=== PATIENT | female | born 1940 | race Caucasian/White ===

== ENCOUNTER → 2017-07-09 | Outpatient (CLI) | payer OTHER | END | disposition home or self-care (01) | LOC: KCIC 09:23 | DX: M79.641 Pain in right hand (principal); Z91.81 History of falling | CPT/HCPCS: 73060 ==

== ENCOUNTER → 2017-07-16 | Outpatient (CLI) | payer OTHER | END | disposition home or self-care (01) | LOC: KCIC 11:41 | DX: I51.7 Cardiomegaly (principal) | CPT/HCPCS: 71046 ==

== ENCOUNTER → 2018-01-24 | Outpatient (CLI) | payer OTHER ==
[~2018-01-24] MED LIST: LEVO75TA PO
[2018-01-24 01:41] LABS: BASO # 0.1 x10^3/uL (0.0-0.2); BASO % 1 % (0-3); EOS # 0.2 x10^3/uL (0.0-0.7); EOS % 4 % (0-3); HEMATOCRIT 41.4 % (36.0-47.0); LYMPH # 1.5 x10^3/uL (1.0-4.8); LYMPH % 33 % (24-48); MEAN CORPUSCULAR HEMOGLOBIN 32 pg (25-35); MEAN CORPUSCULAR HGB CONC 34 g/dL (31-37); MEAN CORPUSCULAR VOLUME 93 fL (79-100); MONO # 0.5 x10^3/uL (0.0-1.1); MONO % 10 % (0-9); NEUT # 2.4 x10^3uL (1.8-7.7); NEUT % 52 % (31-73); PLATELET COUNT 192 x10^3/uL (140-400); RED BLOOD COUNT 4.43 x10^6/uL (3.50-5.40); RED CELL DISTRIBUTION WIDTH 13.9 % (11.5-14.5); WHITE BLOOD COUNT 4.6 x10^3/uL (4.0-11.0)
[2018-01-24 01:57] LABS: CALCIUM 9.2 mg/dL (8.5-10.1); CREATININE 0.8 mg/dL (0.6-1.0); GFR 69.2; POTASSIUM 4.1 mmol/L (3.5-5.1)
== END | disposition home or self-care (01) ==
LOC: SPEC 01:23
PROVIDERS: ATTEND Internal Medicine Cardiovascular Disease
DX: I48.91 Unspecified atrial fibrillation (principal); E03.9 Hypothyroidism, unspecified; E78.5 Hyperlipidemia, unspecified
CPT/HCPCS: 36415; 80048; 80061; 84443; 85025

== ENCOUNTER 2018-08-25 07:59 | Inpatient (IN) | payer OTHER ==
[~2018-08-25] VITALS: Ht 162.6 cm; Wt 81.6 kg
[2018-08-25] MEDS ORDERED: ACETAMINOPHEN 500 MG TABLET PO ONE (08:30)
--- NOTE | 2018-08-25 08:36 | PHYS DOC ---
Past Medical History Past Medical History: A-Fib, CVA, Hypothyroid Additional Past Medical Histor: Guillain [place] Past Surgical History: Appendectomy, Oophorectomy Smoking: Cigarettes (The patient is a nonsmoker.) Alcohol Use: None Drug Use: None Adult General Chief Complaint Chief Complaint: MECHANICAL FALL HPI HPI Patient is an 78-year-old female who presents to the emergency department for evaluation. She was initially referred to the emergency department for evaluation after a mechanical fall. The patient, who was fully coherent, states that she was trying to get her pants on today, when she lost her balance and fell to the ground. She states she states more slid down to the floor then fell , and denies any injury or pain. She denies any complaints at this time at all. She is not short of breath. However, she is noted to be febrile. Additionally, her daughter states that the patient was short of breath yesterday has had a cough. She denies any chest pain, dizziness, lightheadedness, numbness or weakness, headache, neck pain, back pain, or extremity pain. There are no alleviating or exacerbating factors to the patient's symptoms. Review of Systems Review of Systems Constitutional: Denies fever or chills [] Eyes: Denies change in visual acuity, redness, or eye pain [] HENT: Denies nasal congestion or sore throat [] Respiratory: No additional information not addressed in HPI [] Cardiovascular: The patient denies any chest pain, palpitations, or orthopnea[] GI: Denies abdominal pain, nausea, vomiting, bloody stools or diarrhea [] : Denies dysuria or hematuria [] Musculoskeletal: Denies back pain or joint pain [] Integument: Denies rash or skin lesions [] Neurologic: Denies headache, focal weakness or sensory changes [] Endocrine: Denies polyuria or polydipsia [] All other systems were reviewed and found to be within normal limits, except as documented in this note. Current Medications Current Medications Current Medications Medications (Trade) Dose Ordered Sig/Jazmine Start Time Stop Time Status Last Admin Dose Admin Acetaminophen (Tylenol) 1,000 mg 1X ONCE 08/25/18 08:30 08/25/18 08:31 DC 08/25/18 08:53 1,000 MG Azithromycin 250 ml @ 250 mls/hr 1X ONCE 08/25/18 09:45 08/25/18 10:44 DC 08/25/18 10:12 250 MLS/HR Ceftriaxone Sodium (Rocephin) 1 gm 1X ONCE 08/25/18 09:45 08/25/18 09:46 DC 08/25/18 10:03 1 GM Oseltamivir Phosphate (Tamiflu) 75 mg STK-MED ONCE 08/25/18 10:17 08/25/18 10:21 DC Sodium Chloride 1,000 ml @ 1,000 mls/hr 1X ONCE 08/25/18 11:45 08/25/18 12:44 08/25/18 11:52 1,000 MLS/HR Allergies Allergies Allergies Coded Allergies Type Severity Reaction Last Updated Verified Influenza Virus Vaccines Allergy 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 Conjunctivae normal color, sclerae non-icteric; moist mucous membranes. NECK: Supple, non-tender; no meningismus.There is full, painless range of motion of the cervical spine, without any focal bony midline tenderness to palpation. LUNGS: There are mild scattered wheezes, primarily in the right mid and upper lung [place], otherwise lungs are clear, breathing even and unlabored. Normal air movement. HEART: Irregularly irregular rhythm, no murmur CHEST: No deformity; non-tender ABDOMEN: The abdomen is soft, and non-tender, no masses or bruits. EXTREM: Normal ROM; no deformity, no calf tenderness. Normal pulses palpable in all extremities. There is no pedal edema. SKIN: No rash; no diaphoresis NEURO: Alert; normal speech and cognition; CN's grossly intact; strength grossly intact without focal deficit. BACK: No CVA TTP.There is no bony tenderness to palpation of the thoracic or lumbar spine. Current Patient Data Vital Signs Vital Signs Date Time Temp Pulse Resp B/P (MAP) Pulse Ox O2 Delivery O2 Flow Rate FiO2 08/25/18 07:59 100.4 100 20 109/71 (84) 95 Room Air 100.4 Lab Values Laboratory Tests Test 08/25/18 08:55 08/25/18 09:00 08/25/18 09:35 White Blood Count 3.5 x10^3/uL (4.0-11.0) L Red Blood Count 4.53 x10^6/uL (3.50-5.40) Hemoglobin 13.5 g/dL (12.0-15.5) Hematocrit 41.4 % (36.0-47.0) Mean Corpuscular Volume 91 fL (79-100) Mean Corpuscular Hemoglobin 30 pg (25-35) Mean Corpuscular Hemoglobin Concent 33 g/dL (31-37) Red Cell Distribution Width 13.4 % (11.5-14.5) Platelet Count 159 x10^3/uL (140-400) Neutrophils (%) (Auto) 70 % (31-73) Lymphocytes (%) (Auto) 16 % (24-48) L Monocytes (%) (Auto) 13 % (0-9) H Eosinophils (%) (Auto) 0 % (0-3) Basophils (%) (Auto) 1 % (0-3) Neutrophils # (Auto) 2.5 x10^3uL (1.8-7.7) Lymphocytes # (Auto) 0.6 x10^3/uL (1.0-4.8) L Monocytes # (Auto) 0.5 x10^3/uL (0.0-1.1) Eosinophils # (Auto) 0.0 x10^3/uL (0.0-0.7) Basophils # (Auto) 0.0 x10^3/uL (0.0-0.2) Sodium Level 138 mmol/L (136-145) Potassium Level 4.2 mmol/L (3.5-5.1) Chloride Level 101 mmol/L (98-107) Carbon Dioxide Level 29 mmol/L (21-32) Anion Gap 8 (6-14) Blood Urea Nitrogen 15 mg/dL (7-20) Creatinine 0.9 mg/dL (0.6-1.0) Estimated GFR (Cockcroft-Gault) 60.2 BUN/Creatinine Ratio 17 (6-20) Glucose Level 103 mg/dL (70-99) H Lactic Acid Level 1.0 mmol/L (0.4-2.0) Calcium Level 8.6 mg/dL (8.5-10.1) Total Bilirubin 0.4 mg/dL (0.2-1.0) Aspartate Amino Transferase (AST) 53 U/L (15-37) H Alanine Aminotransferase (ALT) 38 U/L (14-59) Alkaline Phosphatase 139 U/L (46-116) H Troponin I Quantitative < 0.017 ng/mL (0.000-0.055) BO-Rwb-H-Type Natriuretic Peptide 1051 pg/mL (0-449) H Total Protein 7.1 g/dL (6.4-8.2) Albumin 3.3 g/dL (3.4-5.0) L Albumin/Globulin Ratio 0.9 (1.0-1.7) L Influenza Type A Antigen Positive (NEGATIVE) Influenza Type B Antigen Negative (NEGATIVE) Prothrombin Time 13.9 SEC (11.7-14.0) Prothrombin Time INR 1.1 (0.8-1.1) PTT 33 SEC (24-38) Laboratory Tests 08/25/18 08:55 Laboratory Tests 08/25/18 08:55 EKG EKG [Atrial fibrillation at a rate of 101 bpm, normal axis, normal intervals, there are no acute ischemic ST/T changes.] Radiology/Procedures Radiology/Procedures [PROCEDURE: CHEST PA & LATERAL CHEST PA LATERAL History: COUGH Comparison: Two-view chest, 07/16/2017. Findings: Stable mild cardiomegaly. Atherosclerotic and mildly tortuous thoracic aorta. Pulmonary vasculature is normal. Right lower lobe airspace disease. No pleural effusion or pneumothorax is seen. Degenerative endplate spurring of the thoracic spine. IMPRESSION: Right lower lobe infiltrate.] Course & Med Decision Making Course & Med Decision Making Pertinent Labs and Imaging studies reviewed. (See chart for details) []10:20 AM: The patient's condition remains stable. I discussed test results with the patient and her family, the need for close follow-up, and return precautions. I did discuss the patient's Tamiflu doesn't with the pharmacist who recommended 30 twice a day based on her creatinine clearance. 11:50 AM: Patient's blood pressure, upon preparing her for discharge, was noted to be low, several blood pressure measurements were taken, including manual pressures, and her blood pressure was found to be in the 70s to 80s systolic. The patient does not want stay in the hospital, but her family is trying to convince her to do so. 12:25 PM: BP 116/62. Pt agreeable to stay over night. I spoke with the hospitalist, who accepted the patient to the hospital for further evaluation and treatment. Dragon Disclaimer Dragon Disclaimer This electronic medical record was generated, in whole or in part, using a voice recognition dictation system. Departure Departure Impression: Primary Impression: Influenza A Additional Impression: Pneumonia Disposition: ADMITTED INPATIENT Admitting Physician: Hubert Chandra Condition: GOOD Referrals: SOREN SALCEDO MD (PCP) Patient Instructions: Influenza, Adult, Pneumonia, Adult Scripts Oseltamivir Phosphate (TAMIFLU) 30 Mg Capsule 1 CAP PO BID, #10 CAP Prov: QUIN COPELAND MD 08/25/18 Azithromycin (AZITHROMYCIN TABLET) 250 Mg Tablet 1 PKG PO UD, #6 TAB Prov: QUIN COPELAND MD 08/25/18 Problem Qualifiers QUIN COPELAND MD Aug 25, 2018 08:36
--- NOTE | 2018-08-25 08:44 | RAD ---
CHEST PA LATERAL History: COUGH Comparison: Two-view chest, 07/16/2017. Findings: Stable mild cardiomegaly. Atherosclerotic and mildly tortuous thoracic aorta. Pulmonary vasculature is normal. Right lower lobe airspace disease. No pleural effusion or pneumothorax is seen. Degenerative endplate spurring of the thoracic spine. IMPRESSION: Right lower lobe infiltrate. Electronically signed by: Tee Stephenson MD (08/25/2018 8:41 AM) [id number]
--- NOTE | 2018-08-25 08:57 | EKG ---
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
[2018-08-25 09:10] LABS: BASO % 1 % (0-3); EOS % 0 % (0-3); HEMATOCRIT 41.4 % (36.0-47.0); HEMOGLOBIN 13.5 g/dL (12.0-15.5); LYMPH # 0.6 x10^3/uL (1.0-4.8); LYMPH % 16 % (24-48); MEAN CORPUSCULAR HEMOGLOBIN 30 pg (25-35); MEAN CORPUSCULAR HGB CONC 33 g/dL (31-37); MEAN CORPUSCULAR VOLUME 91 fL (79-100); MONO # 0.5 x10^3/uL (0.0-1.1); MONO % 13 % (0-9); NEUT # 2.5 x10^3uL (1.8-7.7); NEUT % 70 % (31-73); PLATELET COUNT 159 x10^3/uL (140-400); RED BLOOD COUNT 4.53 x10^6/uL (3.50-5.40); RED CELL DISTRIBUTION WIDTH 13.4 % (11.5-14.5); WHITE BLOOD COUNT 3.5 x10^3/uL (4.0-11.0)
[2018-08-25 09:24] LABS: CALCIUM 8.6 mg/dL (8.5-10.1); CREATININE 0.9 mg/dL (0.6-1.0); GFR 60.2; POTASSIUM 4.2 mmol/L (3.5-5.1)
[2018-08-25 09:30] LABS: ALBUMIN 3.3 g/dL (3.4-5.0); ALBUMIN/GLOBULIN RATIO 0.9 (1.0-1.7); TOTAL BILIRUBIN 0.4 mg/dL (0.2-1.0); TOTAL PROTEIN 7.1 g/dL (6.4-8.2)
[2018-08-25] MEDS ORDERED: AZITHRMYCN 500MG IVPB FOR OMNI 250 ML IV ONE (09:45)
[2018-08-25] MEDS ORDERED: cefTRIAXone IV Push 1 GM VIAL. IVP ONE (09:45)
[2018-08-25 09:52] LABS: PROTHROMBIN TIME PATIENT 13.9 SEC (11.7-14.0)
[2018-08-25 10:04] LABS: INFLUENZA A PATIENT POSITIVE (NEGATIVE); INFLUENZA B PATIENT NEGATIVE (NEGATIVE)
[2018-08-25] MEDS ORDERED: OSELTAMIVIR 30 MG CAPSULE PO ONE (10:15)
[2018-08-25] MEDS ORDERED: OSELTAMIVIR 75 MG CAPSULE PO ONE (10:17)
[2018-08-25] MEDS ORDERED: OSEL30CA PO (10:23)
[2018-08-25] MEDS ORDERED: AZIT250T6 PO (10:23)
[2018-08-25] MEDS ORDERED: IV NORMAL SALINE 1000ML BAG 1,000 ML IV ONE (11:45)
--- NOTE | 2018-08-25 13:07 | PDOC1 ---
History and Physical Date of Admission Date of Admission DATE: 08/25/18 TIME: 13:07 Identification/Chief Complaint Chief Complaint SEEN IN ER , initially referred to the emergency department for evaluation after a mechanical fall. The patient, who was fully coherent, states that she was trying to get her pants on today, when she lost her balance and fell to the ground. She states she states more slid down to the floor then fell, and denies any injury or pain. She denies any complaints at this time at all. She is not short of breath. 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 DUE TO HX GUILLIAN-BARRE Past Medical History Past Medical History Past Medical History Past Medical History Past Medical History: A-Fib, CVA, Hypothyroid Additional Past Medical Histor: Guillain [place] Past Surgical History: Appendectomy, Oophorectomy Smoking: Cigarettes (The patient is a nonsmoker.) Alcohol Use: None Drug Use: None family hx obesity Cardiovascular: AFIB Pulmonary: No pertinent hx CENTRAL NERVOUS SYSTEM: CVA Musculoskeletal: Osteoarthritis Family History Family History: High Cholestrol, Hypertension Social History Smoke: No ALCOHOL: none Drugs: None Current Problem List Problem List Problems Medical Problems: (1) Influenza A Status: Acute (2) Pneumonia Status: Acute Current Medications Current Medications Current Medications Acetaminophen (Tylenol) 1,000 mg 1X ONCE PO Last administered on 08/25/18at 08: 53; Start 08/25/18 at 08:30; Stop 08/25/18 at 08:31; Status DC Ceftriaxone Sodium (Rocephin) 1 gm 1X ONCE IVP Last administered on 08/25/18at 10:03; Start 08/25/18 at 09:45; Stop 08/25/18 at 09:46; Status DC Azithromycin 250 ml @ 250 mls/hr 1X ONCE IV Last administered on 08/25/18at 10 :12; Start 08/25/18 at 09:45; Stop 08/25/18 at 10:44; Status DC Oseltamivir Phosphate (Tamiflu) 30 mg 1X ONCE PO Last administered on at 10:25; Start 08/25/18 at 10:15; Stop 08/25/18 at 10:21; Status DC Oseltamivir Phosphate (Tamiflu) 75 mg STK-MED ONCE PO ; Start 08/25/18 at 10:17 ; Stop 08/25/18 at 10:21; Status DC Sodium Chloride 1,000 ml @ 1,000 mls/hr 1X ONCE IV Last administered on at 11:52; Start 08/25/18 at 11:45; Stop 08/25/18 at 12:44; Status DC Active Scripts Active Tamiflu (Oseltamivir Phosphate) 30 Mg Capsule 1 Cap PO BID Azithromycin Tablet (Azithromycin) 250 Mg Tablet 1 Pkg PO UD Reported Unithroid (Levothyroxine Sodium) 75 Mcg Tablet 75 Mcg PO DAILY Allergies Allergies: Coded Allergies: Influenza Virus Vaccines (Verified Allergy, Severe, GUILIAN BARRE SYNDROME , 08/25/18) ROS Review of System Review of Systems Review of Systems Constitutional: Denies fever or chills, GENERALLY WEAK [] Eyes: Denies change in visual acuity, redness, or eye pain [] [place] HENT: Denies nasal congestion or sore throat [] Respiratory: No additional information not addressed in HPI [] Cardiovascular: The patient denies any chest pain, palpitations, or orthopnea[] GI: Denies abdominal pain, nausea, vomiting, bloody stools or diarrhea [] : Denies dysuria or hematuria [] Musculoskeletal: Denies back pain or joint pain [] Integument: Denies rash or skin lesions [] Neurologic: Denies headache,IS GENERALLY WEAK NO focal weakness or sensory changes [] Endocrine: Denies polyuria or polydipsia [] 14 PT systems were reviewed and found to be within normal limits, except as documented . General: YES: Fatigue Eyes: Yes Decreased vision Hematological and Lymphatic: No: Bleeding Problems, Blood Clots, Blood Transfusions, Brusing, Night Sweats, Pallor, Swollen Lymph Nodes, Other ENDOCRINE: No: Breast Changes, Galactorrhea, Hair Pattern Changes, Hot Flashes , Malaise/lethargy, Mood Swings, Palpitations, Polydipsia/polyuria, Skin Changes , Temperature Intolerance, Unexpected Weight Changes, Other Respiratory: YES: Cough Gastrointestinal: No Nausea, No Vomiting, No Abdominal Pain, No Diarrhea, No Constipation, No Melena, No Hematochezia, No Other Physical Exam Physical Exam Physical Exam Physical Exam PHYSICAL EXAM: CONSTITUTIONAL: Well developed, well nourished HEAD: normocephalic, atraumatic [place] EENT: PERRL, EOMI. Conjunctivae normal color, sclerae non-icteric; moist mucous membranes. NECK: Supple, non-tender; no meningismus.There is full, painless range of motion of the cervical spine, without any focal bony midline tenderness to palpation. LUNGS: There are mild scattered wheezes, primarily in the right mid and upper lung [place], otherwise lungs are clear, breathing even and unlabored. Normal air movement. HEART: Irregularly irregular rhythm, no murmur CHEST: No deformity; non-tender ABDOMEN: The abdomen is soft, and non-tender, no masses or bruits. EXTREM: Normal ROM; no deformity, no calf tenderness. Normal pulses palpable in all extremities. There is no pedal edema. SKIN: No rash; no diaphoresis NEURO: Alert; normal speech and cognition; CN's grossly intact; strength grossly intact without focal deficit. BACK: No CVA TTP.// no bony tenderness to palpation of the thoracic or lumbar spine. General: Alert, Oriented X3, Cooperative, mild distress HEENT: EOMI, Mucous membr. moist/pink Abdomen: Soft PELVIC: Examination not indicated Extremities: No cyanosis Skin: No significant lesion Neuro: Normal speech, Cranial nerves 3-12 NL Psych/Mental Status: Mental status NL Vitals Vitals Vital Signs Date Time Temp Pulse Resp B/P (MAP) Pulse Ox O2 Delivery O2 Flow Rate FiO2 08/25/18 09:38 98 33 95 08/25/18 07:59 100.4 109/71 (84) Room Air 100.4 Labs Labs Laboratory Tests Test 08/25/18 08:55 08/25/18 09:00 08/25/18 09:35 White Blood Count 3.5 x10^3/uL (4.0-11.0) Red Blood Count 4.53 x10^6/uL (3.50-5.40) Hemoglobin 13.5 g/dL (12.0-15.5) Hematocrit 41.4 % (36.0-47.0) Mean Corpuscular Volume 91 fL (79-100) Mean Corpuscular Hemoglobin 30 pg (25-35) Mean Corpuscular Hemoglobin Concent 33 g/dL (31-37) Red Cell Distribution Width 13.4 % (11.5-14.5) Platelet Count 159 x10^3/uL (140-400) Neutrophils (%) (Auto) 70 % (31-73) Lymphocytes (%) (Auto) 16 % (24-48) Monocytes (%) (Auto) 13 % (0-9) Eosinophils (%) (Auto) 0 % (0-3) Basophils (%) (Auto) 1 % (0-3) Neutrophils # (Auto) 2.5 x10^3uL (1.8-7.7) Lymphocytes # (Auto) 0.6 x10^3/uL (1.0-4.8) Monocytes # (Auto) 0.5 x10^3/uL (0.0-1.1) Eosinophils # (Auto) 0.0 x10^3/uL (0.0-0.7) Basophils # (Auto) 0.0 x10^3/uL (0.0-0.2) Sodium Level 138 mmol/L (136-145) Potassium Level 4.2 mmol/L (3.5-5.1) Chloride Level 101 mmol/L (98-107) Carbon Dioxide Level 29 mmol/L (21-32) Anion Gap 8 (6-14) Blood Urea Nitrogen 15 mg/dL (7-20) Creatinine 0.9 mg/dL (0.6-1.0) Estimated GFR (Cockcroft-Gault) 60.2 BUN/Creatinine Ratio 17 (6-20) Glucose Level 103 mg/dL (70-99) Lactic Acid Level 1.0 mmol/L (0.4-2.0) Calcium Level 8.6 mg/dL (8.5-10.1) Total Bilirubin 0.4 mg/dL (0.2-1.0) Aspartate Amino Transf (AST/SGOT) 53 U/L (15-37) Alanine Aminotransferase (ALT/SGPT) 38 U/L (14-59) Alkaline Phosphatase 139 U/L (46-116) Troponin I Quantitative < 0.017 ng/mL (0.000-0.055) QH-Jiv-K-Type Natriuretic Peptide 1051 pg/mL (0-449) Total Protein 7.1 g/dL (6.4-8.2) Albumin 3.3 g/dL (3.4-5.0) Albumin/Globulin Ratio 0.9 (1.0-1.7) Influenza Type A Antigen Positive (NEGATIVE) Influenza Type B Antigen Negative (NEGATIVE) Prothrombin Time 13.9 SEC (11.7-14.0) Prothromb Time International Ratio 1.1 (0.8-1.1) Activated Partial Thromboplast Time 33 SEC (24-38) Laboratory Tests Test 08/25/18 08:55 08/25/18 09:00 08/25/18 09:35 White Blood Count 3.5 x10^3/uL (4.0-11.0) Red Blood Count 4.53 x10^6/uL (3.50-5.40) Hemoglobin 13.5 g/dL (12.0-15.5) Hematocrit 41.4 % (36.0-47.0) Mean Corpuscular Volume 91 fL (79-100) Mean Corpuscular Hemoglobin 30 pg (25-35) Mean Corpuscular Hemoglobin Concent 33 g/dL (31-37) Red Cell Distribution Width 13.4 % (11.5-14.5) Platelet Count 159 x10^3/uL (140-400) Neutrophils (%) (Auto) 70 % (31-73) Lymphocytes (%) (Auto) 16 % (24-48) Monocytes (%) (Auto) 13 % (0-9) Eosinophils (%) (Auto) 0 % (0-3) Basophils (%) (Auto) 1 % (0-3) Neutrophils # (Auto) 2.5 x10^3uL (1.8-7.7) Lymphocytes # (Auto) 0.6 x10^3/uL (1.0-4.8) Monocytes # (Auto) 0.5 x10^3/uL (0.0-1.1) Eosinophils # (Auto) 0.0 x10^3/uL (0.0-0.7) Basophils # (Auto) 0.0 x10^3/uL (0.0-0.2) Sodium Level 138 mmol/L (136-145) Potassium Level 4.2 mmol/L (3.5-5.1) Chloride Level 101 mmol/L (98-107) Carbon Dioxide Level 29 mmol/L (21-32) Anion Gap 8 (6-14) Blood Urea Nitrogen 15 mg/dL (7-20) Creatinine 0.9 mg/dL (0.6-1.0) Estimated GFR (Cockcroft-Gault) 60.2 BUN/Creatinine Ratio 17 (6-20) Glucose Level 103 mg/dL (70-99) Lactic Acid Level 1.0 mmol/L (0.4-2.0) Calcium Level 8.6 mg/dL (8.5-10.1) Total Bilirubin 0.4 mg/dL (0.2-1.0) Aspartate Amino Transf (AST/SGOT) 53 U/L (15-37) Alanine Aminotransferase (ALT/SGPT) 38 U/L (14-59) Alkaline Phosphatase 139 U/L (46-116) Troponin I Quantitative < 0.017 ng/mL (0.000-0.055) IU-Mza-O-Type Natriuretic Peptide 1051 pg/mL (0-449) Total Protein 7.1 g/dL (6.4-8.2) Albumin 3.3 g/dL (3.4-5.0) Albumin/Globulin Ratio 0.9 (1.0-1.7) Influenza Type A Antigen Positive (NEGATIVE) Influenza Type B Antigen Negative (NEGATIVE) Prothrombin Time 13.9 SEC (11.7-14.0) Prothromb Time International Ratio 1.1 (0.8-1.1) Activated Partial Thromboplast Time 33 SEC (24-38) Images Images CHEST PA LATERAL History: COUGH Comparison: Two-view chest, 07/16/2017. Findings: Stable mild cardiomegaly. Atherosclerotic and mildly tortuous thoracic aorta. Pulmonary vasculature is normal. Right lower lobe airspace disease. No pleural effusion or pneumothorax is seen. Degenerative endplate spurring of the thoracic spine. IMPRESSION: Right lower lobe infiltrate. Electronically signed by: Tee Stephenson MD (08/25/2018 8:41 AM) [id number] VTE Prophylaxis Ordered VTE Prophylaxis Devices: Yes VTE Pharmacological Prophylaxi: Yes Assessment/Plan Assessment/Plan IMPRESSION: Right lower lobe infiltrate. flu pos mechanical fall high fall risk generalized weakness presbyoscus, marked hx GUILLIAN-BARRE remote plan tamiflu BID 30MG DUE TO AGE iv antibiotics, ZITHROMAX, ROCEPHIN o2 support prn tele fall precautions pulm consult ID CONSULT no flu shots PT/OT BLOOD CULT MIGNON VEGA MD Aug 25, 2018 13:07
[2018-08-25 15:00] VITALS: BP 121/68
[2018-08-25] MEDS ORDERED: METO-239 PO (16:52)
[2018-08-25] MEDS ORDERED: MULT1TAB52 PO (16:52)
[2018-08-25] MEDS ORDERED: LATA2.5D3 EACHEYE (16:52)
[2018-08-25] MEDS ORDERED: DABI150C PO (16:52)
[2018-08-25] MEDS ORDERED: OMEG-165 PO (16:52)
[2018-08-25] MEDS ORDERED: GLUC100018 PO (16:52)
[2018-08-25] MEDS: IV NORMAL SALINE 1000ML BAG 1,000 ML IV SCH (17:30)
[2018-08-25] MEDS ORDERED: guaiFENesin DM 200MG/20MG 10 ML SYRUP PO PRN (17:30)
[2018-08-25] MEDS ORDERED: ACETAMINOPHEN 500 MG TABLET PO PRN (17:30)
[2018-08-25] MEDS ORDERED: ONDANSETRON PF 4 MG/2 ML VIAL. IV PRN ×2 (17:30→17:45)
[2018-08-25] MEDS ORDERED: ONDANSETRON ODT 4 MG TAB.RAPDIS. PO PRN (17:30)
[2018-08-25] MEDS ORDERED: guaiFENesin ORAL 200 MG/10 ML LIQUID. PO PRN (17:45)
[2018-08-25] MEDS ORDERED: IPRATRPIUM/ALBUTEROL 0.5/2.5MG 3 ML NEBU. NEB SCH (17:45)
[2018-08-25] MEDS ORDERED: DOCUSATE SODIUM 100 MG CAPSULE. PO PRN (17:45)
[2018-08-25] MEDS ORDERED: ACETAMINOPHEN 325 MG TABLET. PO PRN (17:45)
[2018-08-25] MEDS ORDERED: 0.9 % SODIUM CHLORIDE 10 ML DISP.SYRIN. IV PRN (17:45)
[2018-08-25] MEDS ORDERED: MAG HYDROX/ALUMINUM HYD/SIMETH 30 ML ORAL.SUSP PO PRN (17:45)
[2018-08-25] MEDS ORDERED: cloNIDine HCL 0.1 MG TABLET PO PRN (17:45)
[2018-08-25 19:00] VITALS: BP 120/70
[2018-08-25] MEDS: OSELTAMIVIR 30 MG CAPSULE PO SCH (20:39)
[2018-08-25] MEDS: DABIGATRAN ETEXILATE 150 MG CAPSULE. PO SCH (20:39)
[2018-08-25] MEDS: IPRATRPIUM/ALBUTEROL 0.5/2.5MG 3 ML NEBU. NEB SCH (20:51)
[2018-08-25] MEDS ORDERED: LATANOPROST 0.005% OPHTH SOLUTION 2.5ML BOTTLE. OU SCH (21:00)
[2018-08-25] MEDS ORDERED: OSELTAMIVIR 30 MG CAPSULE PO SCH (21:00)
[2018-08-25 23:00] VITALS: BP 132/68
[2018-08-26 03:00] VITALS: BP 120/69
[2018-08-26 04:54] LABS: BASO % 1 % (0-3); EOS % 0 % (0-3); HEMATOCRIT 38.6 % (36.0-47.0); HEMOGLOBIN 12.6 g/dL (12.0-15.5); LYMPH # 0.7 x10^3/uL (1.0-4.8); LYMPH % 35 % (24-48); MEAN CORPUSCULAR HEMOGLOBIN 30 pg (25-35); MEAN CORPUSCULAR HGB CONC 33 g/dL (31-37); MEAN CORPUSCULAR VOLUME 91 fL (79-100); MONO # 0.5 x10^3/uL (0.0-1.1); MONO % 25 % (0-9); NEUT # 0.8 x10^3uL (1.8-7.7); NEUT % 39 % (31-73); PLATELET COUNT 136 x10^3/uL (140-400); RED BLOOD COUNT 4.24 x10^6/uL (3.50-5.40); RED CELL DISTRIBUTION WIDTH 13.5 % (11.5-14.5)
[2018-08-26] MEDS: IV NORMAL SALINE 1000ML BAG 1,000 ML IV SCH (05:18)
[2018-08-26 05:28] LABS: ALBUMIN/GLOBULIN RATIO 0.9 (1.0-1.7); CREATININE 0.9 mg/dL (0.6-1.0); GFR 60.2; POTASSIUM 3.8 mmol/L (3.5-5.1); TOTAL BILIRUBIN 0.3 mg/dL (0.2-1.0); TOTAL PROTEIN 6.3 g/dL (6.4-8.2)
[2018-08-26] MEDS ORDERED: LEVOTHYROXINE 75 MCG TABLET PO SCH (06:00)
[2018-08-26 07:00] VITALS: BP 125/87
[2018-08-26 07:41] LABS: % BANDS 13 % (0-9); % LYMPHS 33 % (24-48); % MONOS 25 % (0-10); % SEGS 29 % (35-66); PLT ESTIMATE ADEQUATE (ADEQUATE)
[2018-08-26 07:42] LABS: POIKILOCYTOSIS PRESENT
[2018-08-26] MEDS: IPRATRPIUM/ALBUTEROL 0.5/2.5MG 3 ML NEBU. NEB SCH ×2 (08:00→08:27)
[2018-08-26] MEDS: DABIGATRAN ETEXILATE 150 MG CAPSULE. PO SCH (08:37)
[2018-08-26] MEDS: OSELTAMIVIR 30 MG CAPSULE PO SCH (08:38)
--- NOTE | 2018-08-26 08:54 | NUR ---
IP: Pt is influenza + requiring droplet precautions for 5 days and 24 hours without a fever, whichever is longest.
[2018-08-26] MEDS ORDERED: OMEGA-3 FATTY ACIDS/FISH OIL 1,000 MG CAPSULE. PO SCH (09:00)
[2018-08-26] MEDS ORDERED: ENOXAPARIN 40 MG/0.4 ML SYRINGE. SQ SCH (09:00)
[2018-08-26] MEDS ORDERED: cefTRIAXone IV Push 1 GM VIAL. IVP SCH (09:00)
[2018-08-26] MEDS ORDERED: METOPROLOL SUCC 24HR ER 25 MG TAB.ER.24H. PO SCH (09:00)
[2018-08-26] MEDS ORDERED: NON FORMULARY ITEM (Glucosamine Sulfate 2KCL (Glucosamine) 1,000 MG) PO SCH (09:00)
[2018-08-26] MEDS ORDERED: MULTIVITAMIN with MINERAL TABLET. PO SCH (09:00)
--- NOTE | 2018-08-26 09:37 | PDOC ---
Infectious Disease Note Vital Sign Vital Signs Vital Signs Date Time Temp Pulse Resp B/P (MAP) Pulse Ox O2 Delivery O2 Flow Rate FiO2 08/26/18 08:37 113 125/87 08/26/18 07:00 98.3 20 97 Room Air 98.3 Labs Lab Laboratory Tests Test 08/26/18 03:45 White Blood Count 2.0 x10^3/uL (4.0-11.0) Red Blood Count 4.24 x10^6/uL (3.50-5.40) Hemoglobin 12.6 g/dL (12.0-15.5) Hematocrit 38.6 % (36.0-47.0) Mean Corpuscular Volume 91 fL (79-100) Mean Corpuscular Hemoglobin 30 pg (25-35) Mean Corpuscular Hemoglobin Concent 33 g/dL (31-37) Red Cell Distribution Width 13.5 % (11.5-14.5) Platelet Count 136 x10^3/uL (140-400) Neutrophils (%) (Auto) 39 % (31-73) Lymphocytes (%) (Auto) 35 % (24-48) Monocytes (%) (Auto) 25 % (0-9) Eosinophils (%) (Auto) 0 % (0-3) Basophils (%) (Auto) 1 % (0-3) Neutrophils # (Auto) 0.8 x10^3uL (1.8-7.7) Lymphocytes # (Auto) 0.7 x10^3/uL (1.0-4.8) Monocytes # (Auto) 0.5 x10^3/uL (0.0-1.1) Eosinophils # (Auto) 0.0 x10^3/uL (0.0-0.7) Basophils # (Auto) 0.0 x10^3/uL (0.0-0.2) Segmented Neutrophils % 29 % (35-66) Band Neutrophils % 13 % (0-9) Lymphocytes % 33 % (24-48) Monocytes % 25 % (0-10) Platelet Estimate Adequate (ADEQUATE) Poikilocytosis Present Sodium Level 139 mmol/L (136-145) Potassium Level 3.8 mmol/L (3.5-5.1) Chloride Level 104 mmol/L (98-107) Carbon Dioxide Level 26 mmol/L (21-32) Anion Gap 9 (6-14) Blood Urea Nitrogen 9 mg/dL (7-20) Creatinine 0.9 mg/dL (0.6-1.0) Estimated GFR (Cockcroft-Gault) 60.2 BUN/Creatinine Ratio 10 (6-20) Glucose Level 118 mg/dL (70-99) Calcium Level 8.0 mg/dL (8.5-10.1) Total Bilirubin 0.3 mg/dL (0.2-1.0) Aspartate Amino Transf (AST/SGOT) 50 U/L (15-37) Alanine Aminotransferase (ALT/SGPT) 38 U/L (14-59) Alkaline Phosphatase 118 U/L (46-116) Total Protein 6.3 g/dL (6.4-8.2) Albumin 3.0 g/dL (3.4-5.0) Albumin/Globulin Ratio 0.9 (1.0-1.7) Micro Microbiology 08/25/18 Blood Culture - Preliminary, Resulted NO GROWTH AFTER 1 DAY Objective Assessment Influenza Pneumonia Plan Plan of Care tamiflu augmentin ok to d/c soon ( pt wants to get out today ) TARIQ JOHNSON MD Aug 26, 2018 09:37
--- NOTE | 2018-08-26 09:39 | NUR ---
SW following pt for anticipated dc needs. Chart reviewed and discussed with RN. Pt lives at home with care giver. PT/OT pending. SW will await for PT/OT recommendation to assess skilled needs. Will continue to follow pt.
[2018-08-26] MEDS ORDERED: METOPROLOL TART IMMED RELEASE 50 MG TABLET. PO ONE (10:15)
[2018-08-26] MEDS ORDERED: AZIT250T6 PO (10:22)
[2018-08-26] MEDS ORDERED: OSEL30CA PO (10:22)
[2018-08-26] MEDS ORDERED: METO-247 PO (10:22)
--- NOTE | 2018-08-26 10:24 | PDOC3 ---
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 Vital Signs Vital Signs Date Time Temp Pulse Resp B/P (MAP) Pulse Ox O2 Delivery O2 Flow Rate FiO2 08/26/18 08:37 113 125/87 08/26/18 07:00 98.3 20 97 Room Air 98.3 Lab Results Laboratory Tests Test 08/25/18 08:55 08/25/18 09:00 08/25/18 09:35 08/26/18 03:45 White Blood Count 3.5 x10^3/uL (4.0-11.0) 2.0 x10^3/uL (4.0-11.0) Red Blood Count 4.53 x10^6/uL (3.50-5.40) 4.24 x10^6/uL (3.50-5.40) Hemoglobin 13.5 g/dL (12.0-15.5) 12.6 g/dL (12.0-15.5) Hematocrit 41.4 % (36.0-47.0) 38.6 % (36.0-47.0) Mean Corpuscular Volume 91 fL (79-100) 91 fL (79-100) Mean Corpuscular Hemoglobin 30 pg (25-35) 30 pg (25-35) Mean Corpuscular Hemoglobin Concent 33 g/dL (31-37) 33 g/dL (31-37) Red Cell Distribution Width 13.4 % (11.5-14.5) 13.5 % (11.5-14.5) Platelet Count 159 x10^3/uL (140-400) 136 x10^3/uL (140-400) Neutrophils (%) (Auto) 70 % (31-73) 39 % (31-73) Lymphocytes (%) (Auto) 16 % (24-48) 35 % (24-48) Monocytes (%) (Auto) 13 % (0-9) 25 % (0-9) Eosinophils (%) (Auto) 0 % (0-3) 0 % (0-3) Basophils (%) (Auto) 1 % (0-3) 1 % (0-3) Neutrophils # (Auto) 2.5 x10^3uL (1.8-7.7) 0.8 x10^3uL (1.8-7.7) Lymphocytes # (Auto) 0.6 x10^3/uL (1.0-4.8) 0.7 x10^3/uL (1.0-4.8) Monocytes # (Auto) 0.5 x10^3/uL (0.0-1.1) 0.5 x10^3/uL (0.0-1.1) Eosinophils # (Auto) 0.0 x10^3/uL (0.0-0.7) 0.0 x10^3/uL (0.0-0.7) Basophils # (Auto) 0.0 x10^3/uL (0.0-0.2) 0.0 x10^3/uL (0.0-0.2) Sodium Level 138 mmol/L (136-145) 139 mmol/L (136-145) Potassium Level 4.2 mmol/L (3.5-5.1) 3.8 mmol/L (3.5-5.1) Chloride Level 101 mmol/L (98-107) 104 mmol/L (98-107) Carbon Dioxide Level 29 mmol/L (21-32) 26 mmol/L (21-32) Anion Gap 8 (6-14) 9 (6-14) Blood Urea Nitrogen 15 mg/dL (7-20) 9 mg/dL (7-20) Creatinine 0.9 mg/dL (0.6-1.0) 0.9 mg/dL (0.6-1.0) Estimated GFR (Cockcroft-Gault) 60.2 60.2 BUN/Creatinine Ratio 17 (6-20) 10 (6-20) Glucose Level 103 mg/dL (70-99) 118 mg/dL (70-99) Lactic Acid Level 1.0 mmol/L (0.4-2.0) Calcium Level 8.6 mg/dL (8.5-10.1) 8.0 mg/dL (8.5-10.1) Total Bilirubin 0.4 mg/dL (0.2-1.0) 0.3 mg/dL (0.2-1.0) Aspartate Amino Transf (AST/SGOT) 53 U/L (15-37) 50 U/L (15-37) Alanine Aminotransferase (ALT/SGPT) 38 U/L (14-59) 38 U/L (14-59) Alkaline Phosphatase 139 U/L (46-116) 118 U/L (46-116) Troponin I Quantitative < 0.017 ng/mL (0.000-0.055) IF-Fqt-M-Type Natriuretic Peptide 1051 pg/mL (0-449) Total Protein 7.1 g/dL (6.4-8.2) 6.3 g/dL (6.4-8.2) Albumin 3.3 g/dL (3.4-5.0) 3.0 g/dL (3.4-5.0) Albumin/Globulin Ratio 0.9 (1.0-1.7) 0.9 (1.0-1.7) Influenza Type A Antigen Positive (NEGATIVE) Influenza Type B Antigen Negative (NEGATIVE) Prothrombin Time 13.9 SEC (11.7-14.0) Prothromb Time International Ratio 1.1 (0.8-1.1) Activated Partial Thromboplast Time 33 SEC (24-38) Segmented Neutrophils % 29 % (35-66) Band Neutrophils % 13 % (0-9) Lymphocytes % 33 % (24-48) Monocytes % 25 % (0-10) Platelet Estimate Adequate (ADEQUATE) Poikilocytosis Present Laboratory Tests Test 08/26/18 03:45 White Blood Count 2.0 x10^3/uL (4.0-11.0) Red Blood Count 4.24 x10^6/uL (3.50-5.40) Hemoglobin 12.6 g/dL (12.0-15.5) Hematocrit 38.6 % (36.0-47.0) Mean Corpuscular Volume 91 fL (79-100) Mean Corpuscular Hemoglobin 30 pg (25-35) Mean Corpuscular Hemoglobin Concent 33 g/dL (31-37) Red Cell Distribution Width 13.5 % (11.5-14.5) Platelet Count 136 x10^3/uL (140-400) Neutrophils (%) (Auto) 39 % (31-73) Lymphocytes (%) (Auto) 35 % (24-48) Monocytes (%) (Auto) 25 % (0-9) Eosinophils (%) (Auto) 0 % (0-3) Basophils (%) (Auto) 1 % (0-3) Neutrophils # (Auto) 0.8 x10^3uL (1.8-7.7) Lymphocytes # (Auto) 0.7 x10^3/uL (1.0-4.8) Monocytes # (Auto) 0.5 x10^3/uL (0.0-1.1) Eosinophils # (Auto) 0.0 x10^3/uL (0.0-0.7) Basophils # (Auto) 0.0 x10^3/uL (0.0-0.2) Segmented Neutrophils % 29 % (35-66) Band Neutrophils % 13 % (0-9) Lymphocytes % 33 % (24-48) Monocytes % 25 % (0-10) Platelet Estimate Adequate (ADEQUATE) Poikilocytosis Present Sodium Level 139 mmol/L (136-145) Potassium Level 3.8 mmol/L (3.5-5.1) Chloride Level 104 mmol/L (98-107) Carbon Dioxide Level 26 mmol/L (21-32) Anion Gap 9 (6-14) Blood Urea Nitrogen 9 mg/dL (7-20) Creatinine 0.9 mg/dL (0.6-1.0) Estimated GFR (Cockcroft-Gault) 60.2 BUN/Creatinine Ratio 10 (6-20) Glucose Level 118 mg/dL (70-99) Calcium Level 8.0 mg/dL (8.5-10.1) Total Bilirubin 0.3 mg/dL (0.2-1.0) Aspartate Amino Transf (AST/SGOT) 50 U/L (15-37) Alanine Aminotransferase (ALT/SGPT) 38 U/L (14-59) Alkaline Phosphatase 118 U/L (46-116) Total Protein 6.3 g/dL (6.4-8.2) Albumin 3.0 g/dL (3.4-5.0) Albumin/Globulin Ratio 0.9 (1.0-1.7) Brief Hospital Course Ms. Meraz is a 78 old female, admit with sepsis, pneumonia, cough and dyspena better at 24 hours, wanted to DC home refused home health tamiflu, adrienneithro, HR high, will increase toprol for afib, f/u Dr. Puga, Dr. Garcia Discharge Information Condition at Discharge: Improved Follow Up: Weeks Disposition/Orders: D/C to Home Scheduled Azithromycin (Azithromycin Tablet) 250 Mg Tablet, 1 PKG PO UD for flu, #5 Prescribed by: ANTONY CABEZAS on 08/26/181021 Dabigatran Etexilate Mesylate (Pradaxa) 150 Mg Capsule, 1 CAP PO BID for blood thinner, #60 Ref 5 (Reported) Entered as Reported by: LIV BARRAZA on 08/25/181651 Last Action: Continued on 08/25/181725 by MIGNON VEGA MD Glucosamine Sulfate 2KCL (Glucosamine) 1,000 Mg Tablet, 1,000 MG PO DAILY for joints, (Reported) Entered as Reported by: LIV BARRAZA on 08/25/181651 Last Action: Converted on 08/25/181725 by MIGNON VEGA MD Latanoprost (Latanoprost) 2.5 Ml Drops, 1 DROP EACHEYE QHS for cataracts, #7.5 Ref 3 (Reported) Entered as Reported by: LIV BARRAZA on 08/25/181651 Last Action: Converted on 08/25/181725 by MIGNON VEGA MD Levothyroxine Sodium (Unithroid) 75 Mcg Tablet, 75 MCG PO DAILY, (Reported) Entered as Reported by: BRADLY VALDIVIA on 08/20/13 1020 Last Action: Continued on 08/25/181725 by MIGNON VEGA MD Metoprolol Succinate (Metoprolol Succinate ( Xl )) 25 Mg Tab.er.24h, 1 TAB PO DAILY for BP, #30 Ref 5 (Reported) Entered as Reported by: LIV BARRAZA on 08/25/181651 Last Action: Continued on 08/25/181725 by MIGNON VEGA MD Metoprolol Succinate (Metoprolol Succinate ( Xl )) 100 Mg Tab.er.24h, 0.5 TAB PO DAILY for afib, #30 50mg PO QAM Prescribed by: ANTONY CABEZAS on 08/26/181021 Multivitamin (Multivitamins) 1 Each Tablet, 1 TAB PO DAILY for adequate nutrition, #30 Ref 2 (Reported) Entered as Reported by: LIV BARRAZA on 08/25/181651 Last Action: Converted on 08/25/181725 by MIGNON VEGA MD [place]-3S/Dha/Epa/Fish Oil (Fish Oil 1,000 mg Softgel) 1 Each Capsule, 1 EACH PO DAILY for supplement, (Reported) Entered as Reported by: LIV BARRAZA on 08/25/181651 Last Action: Converted on 08/25/181725 by MIGNON VEGA MD Oseltamivir Phosphate (Tamiflu) 30 Mg Capsule, 1 CAP PO BID for flu, #10 Prescribed by: ANTONY CABEZAS on 08/26/18 1022 Patient Instructions Patient Instructions refused home health > 30 min, face to face ANTONY CABEZAS MD Aug 26, 2018 10:24
[2018-08-26 10:43] VITALS: BP 125/87
--- NOTE | 2018-08-26 11:54 | NUR ---
Discharge Note: HUE HODGSON Discharge instructions and discharge home medications reviewed with Patient and a copy given. All questions have been answered and understanding verbalized. The following instructions and handouts were given: Pneumonia, Influenza Discontinued lines and drains: Peripheral IV intact. [facility] Walked to front entrance with Rc BARRERA
[2018-08-26] MEDS ORDERED: ALBUTEROL SULFATE 2.5 MG/3 ML NEBU. NEB SCH (12:00)
[2018-08-26] MEDS ORDERED: BUDESONIDE 0.5 MG/2 ML NEBU. NEB SCH (20:00)
--- NOTE | 2018-08-26 23:04 | CONS ---
DATE OF CONSULTATION: 08/26/2018 REQUESTING PHYSICIAN: Dr. Post. REASON FOR CONSULTATION: Influenza pneumonia. HISTORY OF PRESENT ILLNESS: This is an 78-year-old female with multiple medical problems who came in after having a fall. The patient evidently has been checked out and no trauma, but she was found to have influenza A positive. Chest x-ray showed pneumonia. She says she has occasional cough, little chest congestion, but otherwise she feels fine. She denies any fever, denies any nausea, vomiting, diarrhea. Denies any chest pain, shortness of breath, abdominal pain, urinary symptoms or bowel symptoms. In fact, she says she is ready to go home today. PAST MEDICAL HISTORY: Positive for atrial fibrillation, CVA, hypothyroidism. She has had Guillain-[place], has had appendicectomy, oophorectomy. SOCIAL HISTORY: Negative for smoking, alcohol, illicit drug use. ALLERGIES: SHE HAS LISTED NOW ALLERGIC TO INFLUENZA VACCINE; although, that is not true allergy, it is a contraindication. REVIEW OF SYSTEMS: As per HPI. All other systems reviewed are negative. CURRENT MEDICATIONS: The patient is on Tamiflu and Rocephin. She also received a dose of azithromycin. PHYSICAL EXAMINATION: GENERAL: Alert, oriented female, not in distress. VITAL SIGNS: Stable with a T-max 100.7. HEENT: NAD. NECK: Supple, no JVP, no lymphadenopathy. LUNGS: Clear. HEART: S1, S2 regular. ABDOMEN: Benign. EXTREMITIES: No edema, cyanosis. SKIN: Unremarkable. NEUROLOGIC: The patient is neurologically alert, awake, no focal neurologic deficit. LABORATORY DATA: White count is 2000. BUN and creatinine is normal. Influenza A antigen is positive. Chest x-ray showed right lower lobe infiltrate. IMPRESSION: 1. Influenza A positive. 2. Pneumonia. 3. Fever. 4. History of cerebrovascular accident. 5. Hypertension. PLAN: Recommend continue Tamiflu, give Rocephin today and if she insists on getting out, she can be discharged on p.o. Augmentin and Tamiflu. Supportive care. Thank you very much, Dr. Post, for giving me the opportunity to participate in this patient's care. TARIQ JOHNSON MD DR: LEIGH ANN/td JOB#: [id number] / [id number]
== END 2018-08-26 11:58 | disposition home or self-care (01) | DRG 871 ==
LOC: ER 07:59 → 5 NORTH 11:50
PROVIDERS: ADMIT Family Medicine; ATTEND Family Medicine
DX: A41.9 Sepsis, unspecified organism (principal); J10.00 Influenza due to other identified influenza virus with unspecified type of pneumonia; Z91.81 History of falling; E03.9 Hypothyroidism, unspecified; I10 Essential (primary) hypertension; I48.91 Unspecified atrial fibrillation; M46.04 Spinal enthesopathy, thoracic region; M19.90 Unspecified osteoarthritis, unspecified site; W01.0XXA Fall on same level from slipping, tripping and stumbling without subsequent striking against object, initial encounter; Z82.49 Family history of ischemic heart disease and other diseases of the circulatory system; Z86.73 Personal history of transient ischemic attack (TIA), and cerebral infarction without residual deficits; Z90.49 Acquired absence of other specified parts of digestive tract; Z87.891 Personal history of nicotine dependence; Y93.89 Activity, other specified; Y92.89 Other specified places as the place of occurrence of the external cause; Y99.8 Other external cause status
CPT/HCPCS: 36415; 71046; 80053; 83605; 83880; 84484; 85007; 85025; 85610; 85730; 87040; 87804; 93005; 94640; 96361; 96365; 96376; J0456; J0696; J7030; J7613; J7620; 99285-25

== ENCOUNTER 2018-09-15 12:46 | Emergency (ER) | payer OTHER ==
[~2018-09-15] VITALS: Ht 160 cm; Wt 83.0 kg
[~2018-09-15 12:46] MED LIST changes: +AZIT250T6 PO; +DABI150C PO; +GLUC100018 PO; +LATA2.5D3 EACHEYE; +METO-239 PO; +METO-247 PO; +MULT1TAB52 PO; +OMEG-165 PO; +OSEL30CA PO
[2018-09-15 13:11] VITALS: BP 125/87
[2018-09-15 13:59] LABS: BILIRUBIN,URINE NEGATIVE (NEG); CLARITY,URINE CLEAR; COLOR,URINE YELLOW; NITRITE,URINE NEGATIVE (NEG); PH,URINE 6.5; PROTEIN,URINE NEGATIVE (NEG-TRACE); UROBILINOGEN,URINE 0.2 mg/dL (0.2 mg/dL)
[2018-09-15 14:11] LABS: BACTERIA,URINE 0 /HPF (0-FEW); SQUAMOUS EPITHELIAL CELL,UR OCC /LPF; WBC,URINE OCC /HPF (0-4)
[2018-09-15 14:14] LABS: BASO % 1 % (0-3); EOS # 0.1 x10^3/uL (0.0-0.7); EOS % 2 % (0-3); HEMATOCRIT 38.4 % (36.0-47.0); HEMOGLOBIN 12.5 g/dL (12.0-15.5); LYMPH # 1.4 x10^3/uL (1.0-4.8); LYMPH % 27 % (24-48); MEAN CORPUSCULAR HEMOGLOBIN 29 pg (25-35); MEAN CORPUSCULAR HGB CONC 33 g/dL (31-37); MEAN CORPUSCULAR VOLUME 91 fL (79-100); MONO # 0.6 x10^3/uL (0.0-1.1); MONO % 12 % (0-9); NEUT % 59 % (31-73); PLATELET COUNT 259 x10^3/uL (140-400); RED BLOOD COUNT 4.24 x10^6/uL (3.50-5.40); RED CELL DISTRIBUTION WIDTH 13.5 % (11.5-14.5); WHITE BLOOD COUNT 5.1 x10^3/uL (4.0-11.0)
--- NOTE | 2018-09-15 14:22 | RAD ---
CT HEAD WO CONTRAST Indication: AMS, NO PRIORS Exposure: One or more of the following individualized dose reduction techniques were utilized for this examination: 1. Automated exposure control 2. Adjustment of the mA and/or kV according to patient size 3. Use of iterative reconstruction technique. Technique: Standard imaging without intravenous contrast. Posterior fossa unremarkable. No acute intracranial hemorrhage, mass effect, midline shift or abnormal extra-axial fluid collection. Prominence of ventricles and sulci compatible with atrophy. Low-density in the white matter bilaterally, a nonspecific finding, but which is commonly due to chronic small vessel ischemic disease in a patient of this age. Partially visualized sinuses are clear. Mastoids are clear. No acute skull abnormality. Orbits appear unremarkable. No evidence of scalp swelling. IMPRESSION: Chronic findings. No evidence of acute intracranial hemorrhage or mass effect. Electronically signed by: Prasanth Agrawal MD (09/15/2018 2:19 PM) [id number]
[2018-09-15 14:26] LABS: CREATININE 0.6 mg/dL (0.6-1.0); GFR 96.2
--- NOTE | 2018-09-15 14:31 | RAD ---
CT ABDOMEN PELVIS WO CONTRAST Indication: RT FLANK PAIN, NO PRIORS Exposure: One or more of the following individualized dose reduction techniques were utilized for this examination: 1. Automated exposure control 2. Adjustment of the mA and/or kV according to patient size 3. Use of iterative reconstruction technique. Comparison: None are available. Technique: No intravenous contrast given. No oral contrast per request. Findings: Evaluation of solid viscera, bowel and vasculature is compromised by the noncontrast technique. Linear opacities in both lung bases, likely scarring or fibrosis. Heart size is enlarged. Liver unremarkable. Hypodense lesion within the spleen, measuring 3 cm. Measures 20 Hounsfield units, could represent a cyst. Pancreas unremarkable. No adrenal mass. No hydronephrosis. No evidence of urinary tract calculus. No calcified gallstone. Aorta calcified without gross aneurysm. No significant lymph node enlargement. No evidence of bowel obstruction. No acute colitis. The appendix is not clearly seen. No ascites or pneumoperitoneum is seen. No evidence of pelvic mass. Urinary bladder is unremarkable. Degenerative spondylosis of the visualized spine. Multilevel slight spondylolisthesis of the lumbar spine. Mild compression deformities of lower thoracic vertebrae, age indeterminant but no specific evidence to indicate acute nature. There is associated spinal stenosis. Degenerative changes at the skeletal pelvis. IMPRESSION: 1. No evidence of urinary tract calculus or obstruction. 2. Hypodense splenic lesion measures 3 cm. Nonspecific, but could represent a cyst. 3. Degenerative spondylosis with stenosis. 4. Mild lower thoracic compression fractures, age-indeterminate but no specific features to suggest acute nature. Electronically signed by: Prasanth Agrawal MD (09/15/2018 2:28 PM) [facility]
[2018-09-15 14:34] LABS: ALBUMIN 3.3 g/dL (3.4-5.0); TOTAL BILIRUBIN 0.3 mg/dL (0.2-1.0); TOTAL PROTEIN 6.6 g/dL (6.4-8.2)
--- NOTE | 2018-09-15 16:05 | PHYS DOC ---
Past Medical History Past Medical History: A-Fib, CVA, Hypothyroid Additional Past Medical Histor: Guillain [place] Past Surgical History: Appendectomy, Oophorectomy Alcohol Use: None Drug Use: None Adult General Chief Complaint Chief Complaint: [facility] Patient is a 78 year old female who presents with complaining of increasing flank pain, generalized weakness, not feeling good, anxiety. Patient had influenza and pneumonia on August 25 with improvement of her condition with complaining of intermittent episodes of right flank pain and seen by her primary care physician office 2 times to speak and her primary care physician was constant for change of her mental condition and sent her to ER for evaluation. Patient also was seen at urgent care and treated for anxiety with lorazepam 0.5 mg but patient decided to take the medication because of side effects. Complaining of urinary frequency and nausea and not having energy like her previous condition before having pneumonia. Patient denies chest pain, shortness of breath, fever and chills, vomiting, fever and chills. Review of Systems Review of Systems Constitutional: Denies fever or chills [] Eyes: Denies change in visual acuity, redness, or eye pain [] HENT: Denies nasal congestion or sore throat [] Respiratory: Denies cough or shortness of breath [] Cardiovascular: No additional information not addressed in HPI [] GI: Denies abdominal pain, nausea, vomiting, bloody stools or diarrhea [] : Denies dysuria or hematuria. Reports urinary frequency and flank pain [] Musculoskeletal: Denies back pain or joint pain [] Integument: Denies rash or skin lesions [] Neurologic: Denies headache, focal weakness or sensory changes [] Endocrine: Denies polyuria or polydipsia [] All other systems were reviewed and found to be within normal limits, except as documented in this note. 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 [] HENT: Normocephalic, atraumatic, bilateral external ears normal, oropharynx moist, no oral exudates, nose normal. [] Eyes: PERRLA, EOMI, conjunctiva normal, no discharge. [] Neck: Normal range of motion, no tenderness, supple, no stridor. [] Cardiovascular: Irregularly irregular, no murmur [] Lungs & Thorax: Bilateral breath sounds clear to auscultation [] Abdomen: Bowel sounds normal, soft, no tenderness, no masses, no pulsatile masses. [] Skin: Warm, dry, no erythema, no rash. [] Back: No tenderness, no CVA tenderness. [] Extremities: No tenderness, no cyanosis, no clubbing, ROM intact, no edema. [] Neurologic: Alert and oriented X 3, normal motor function, normal sensory function, no focal deficits noted. [] Psychologic: Affect anxious, judgement normal, mood normal. [] Current Patient Data Vital Signs Vital Signs Date Time Temp Pulse Resp B/P (MAP) Pulse Ox O2 Delivery O2 Flow Rate FiO2 09/15/18 13:11 97.9 92 20 125/87 (100) Room Air 97.9 Lab Values Laboratory Tests Test 09/15/18 13:10 09/15/18 13:30 09/15/18 13:50 Glucose (Fingerstick) 114 mg/dL (70-99) H Urine Color Yellow Urine Clarity Clear Urine pH 6.5 Urine Specific [place] 1.010 Urine Protein Negative mg/dL (NEG-TRACE) Urine Glucose (UA) Negative mg/dL (NEG) Urine Ketones (Stick) Negative mg/dL (NEG) Urine Blood Trace (NEG) Urine Nitrite Negative (NEG) Urine Bilirubin Negative (NEG) Urine Urobilinogen Dipstick 0.2 mg/dL (0.2 mg/dL) Urine Leukocyte Esterase Trace (NEG) Urine RBC 1-2 /HPF (0-2) Urine WBC Occ /HPF (0-4) Urine Squamous Epithelial Cells Occ /LPF Urine Renal Epithelial Cells Occ /LPF Urine Bacteria 0 /HPF (0-FEW) White Blood Count 5.1 x10^3/uL (4.0-11.0) Red Blood Count 4.24 x10^6/uL (3.50-5.40) Hemoglobin 12.5 g/dL (12.0-15.5) Hematocrit 38.4 % (36.0-47.0) Mean Corpuscular Volume 91 fL (79-100) Mean Corpuscular Hemoglobin 29 pg (25-35) Mean Corpuscular Hemoglobin Concent 33 g/dL (31-37) Red Cell Distribution Width 13.5 % (11.5-14.5) Platelet Count 259 x10^3/uL (140-400) Neutrophils (%) (Auto) 59 % (31-73) Lymphocytes (%) (Auto) 27 % (24-48) Monocytes (%) (Auto) 12 % (0-9) H Eosinophils (%) (Auto) 2 % (0-3) Basophils (%) (Auto) 1 % (0-3) Neutrophils # (Auto) 3.0 x10^3uL (1.8-7.7) Lymphocytes # (Auto) 1.4 x10^3/uL (1.0-4.8) Monocytes # (Auto) 0.6 x10^3/uL (0.0-1.1) Eosinophils # (Auto) 0.1 x10^3/uL (0.0-0.7) Basophils # (Auto) 0.0 x10^3/uL (0.0-0.2) Sodium Level 139 mmol/L (136-145) Potassium Level 4.0 mmol/L (3.5-5.1) Chloride Level 103 mmol/L (98-107) Carbon Dioxide Level 27 mmol/L (21-32) Anion Gap 9 (6-14) Blood Urea Nitrogen 13 mg/dL (7-20) Creatinine 0.6 mg/dL (0.6-1.0) Estimated GFR (Cockcroft-Gault) 96.2 BUN/Creatinine Ratio 22 (6-20) H Glucose Level 122 mg/dL (70-99) H Calcium Level 9.0 mg/dL (8.5-10.1) Total Bilirubin 0.3 mg/dL (0.2-1.0) Aspartate Amino Transferase (AST) 29 U/L (15-37) Alanine Aminotransferase (ALT) 35 U/L (14-59) Alkaline Phosphatase 140 U/L (46-116) H Creatine Kinase 62 U/L (26-192) Troponin I Quantitative < 0.017 ng/mL (0.000-0.055) Total Protein 6.6 g/dL (6.4-8.2) Albumin 3.3 g/dL (3.4-5.0) L Albumin/Globulin Ratio 1.0 (1.0-1.7) Lipase 202 U/L (73-393) Laboratory Tests 09/15/18 13:50 Laboratory Tests 09/15/18 13:50 EKG EKG EKG interpreted by me. EKG at 1308 showed atrial flutter ablation at rate of 92 , normal QT intervals, no acute ST and T-wave abnormalities. Radiology/Procedures Radiology/Procedures [][facility] [address] [place] [address] IMAGING REPORT Signed PATIENT: HUE HODGSON ACCOUNT: [id number] : 1940 LOCATION: ER AGE: 78 SEX: F EXAM STATUS: REG ER ORD. PHYSICIAN: RAVEN SOTO MD REASON: right flank pain PROCEDURE: CT ABDOMEN PELVIS WO CONTRAST CT ABDOMEN PELVIS WO CONTRAST Indication: RT FLANK PAIN, NO PRIORS Exposure: One or more of the following individualized dose reduction techniques were utilized for this examination: 1. Automated exposure control 2. Adjustment of the mA and/or kV according to patient size 3. Use of iterative reconstruction technique. Comparison: None are available. Technique: No intravenous contrast given. No oral contrast per request. Findings: Evaluation of solid viscera, bowel and vasculature is compromised by the noncontrast technique. Linear opacities in both lung bases, likely scarring or fibrosis. Heart size is enlarged. Liver unremarkable. Hypodense lesion within the spleen, measuring 3 cm. Measures 20 Hounsfield units, could represent a cyst. Pancreas unremarkable. No adrenal mass. No hydronephrosis. No evidence of urinary tract calculus. No calcified gallstone. Aorta calcified without gross aneurysm. No significant lymph node enlargement. No evidence of bowel obstruction. No acute colitis. The appendix is not clearly seen. No ascites or pneumoperitoneum is seen. No evidence of pelvic mass. Urinary bladder is unremarkable. Degenerative spondylosis of the visualized spine. Multilevel slight spondylolisthesis of the lumbar spine. Mild compression deformities of lower thoracic vertebrae, age indeterminant but no specific evidence to indicate acute nature. There is associated spinal stenosis. Degenerative changes at the skeletal pelvis. IMPRESSION: 1. No evidence of urinary tract calculus or obstruction. 2. Hypodense splenic lesion measures 3 cm. Nonspecific, but could represent a cyst. 3. Degenerative spondylosis with stenosis. 4. Mild lower thoracic compression fractures, age-indeterminate but no specific features to suggest acute nature. Electronically signed by: Prasanth Agrawal MD (09/15/2018 2:28 PM) [id number] DICTATED and SIGNED BY: PRASANTH AGRAWAL MD DATE: 09/15/18 1427 [facility] [address] [place] [address] IMAGING REPORT Signed PATIENT: HUE OHDGSON ACCOUNT: [id number] : 1940 LOCATION: ER AGE: 78 SEX: F EXAM STATUS: REG ER ORD. PHYSICIAN: RAVEN SOTO MD REASON: right flank pain PROCEDURE: CT HEAD WO CONTRAST CT HEAD WO CONTRAST Indication: AMS, NO PRIORS Exposure: One or more of the following individualized dose reduction techniques were utilized for this examination: 1. Automated exposure control 2. Adjustment of the mA and/or kV according to patient size 3. Use of iterative reconstruction technique. Technique: Standard imaging without intravenous contrast. Posterior fossa unremarkable. No acute intracranial hemorrhage, mass effect, midline shift or abnormal extra-axial fluid collection. Prominence of ventricles and sulci compatible with atrophy. Low-density in the white matter bilaterally, a nonspecific finding, but which is commonly due to chronic small vessel ischemic disease in a patient of this age. Partially visualized sinuses are clear. Mastoids are clear. No acute skull abnormality. Orbits appear unremarkable. No evidence of scalp swelling. IMPRESSION: Chronic findings. No evidence of acute intracranial hemorrhage or mass effect. Electronically signed by: Prasanth Agrawal MD (09/15/2018 2:19 PM) [id number] DICTATED and SIGNED BY: PRASANTH AGRAWAL MD DATE: 09/15/18 1415 Course & Med Decision Making Course & Med Decision Making Pertinent Labs and Imaging studies reviewed. (See chart for details) Evaluation of patient in ER showed 78-year-old female patient with multiple complaints. Patient had unremarkable physical exam except for mild anxiety. Labs was unremarkable. CT of abdomen and pelvis showed old thoracic compression fracture. Patient informed about her test results and follow up with her primary care physician. Patient was advised to take lorazepam 0.25 mg as needed for anxiety. Dragon Disclaimer Dragon Disclaimer This electronic medical record was generated, in whole or in part, using a voice recognition dictation system. Departure Departure Impression: Primary Impression: Anxiety Additional Impressions: Compression fracture of body of thoracic vertebra Flank pain Disposition: HOME, SELF-CARE (at 1604) Condition: IMPROVED Referrals: SOREN SALCEDO MD (PCP) Patient Instructions: Anxiety and Panic Attacks, Back, Compression Fracture, Flank Pain Additional Instructions: Drink plenty of liquids Follow-up with your primary care physician in 3-5 days Return to ER if not getting better Take half a lorazepam 0.5 mg as needed for anxiety Problem Qualifiers RAVEN SOTO MD Sep 15, 2018 16:05
--- NOTE | 2018-09-15 16:09 | EKG ---
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
== END 2018-09-15 16:35 | disposition home or self-care (01) ==
LOC: ER 12:46
DX: S22.008A Other fracture of unspecified thoracic vertebra, initial encounter for closed fracture (principal); R10.9 Unspecified abdominal pain; F41.9 Anxiety disorder, unspecified; M43.16 Spondylolisthesis, lumbar region; I48.91 Unspecified atrial fibrillation; E03.9 Hypothyroidism, unspecified; Z86.73 Personal history of transient ischemic attack (TIA), and cerebral infarction without residual deficits; Z90.89 Acquired absence of other organs; Z90.722 Acquired absence of ovaries, bilateral; Z88.7 Allergy status to serum and vaccine; X58.XXXA Exposure to other specified factors, initial encounter; Y93.89 Activity, other specified; Y92.89 Other specified places as the place of occurrence of the external cause; Y99.8 Other external cause status
CPT/HCPCS: 36415; 70450; 74176; 80053; 81001; 82550; 82962; 83690; 84484; 85025; 87086; 93005; 99284

== ENCOUNTER 2021-06-29 08:01 | Inpatient (IN) | payer MEDICARE, OTHER ==
[~2021-06-29] VITALS: Ht 157.5 cm; Wt 78.0 kg
[~2021-06-29 08:01] MED LIST changes: +MULT-445 PO; -MULT1TAB52 PO
[2021-06-29] MEDS ORDERED: MECLIZINE HCL 12.5 MG TABLET. PO ONE (08:30)
--- NOTE | 2021-06-29 08:54 | RAD ---
EXAMINATION: Chest radiograph. VIEWS: 1 COMPARISON: 08/25/2018 INDICATION:80 years, Female, vertigo, falls. FINDINGS: Normal cardiomediastinal silhouette. Right basilar atelectatic changes and/or scarring, similar to pr ior exam. No focal consolidation. No pleural effusion or pneumothorax. No acute osseous process. IMPRESSION: No acute cardiopulmonary process. Electronically signed by: Yulia Meneses MD (06/29/2021 8:52 AM) [id number]
[2021-06-29 08:58] LABS: BASO % 1 % (0-3); EOS % 0 % (0-3); HEMATOCRIT 40.7 % (36.0-47.0); HEMOGLOBIN 13.4 g/dL (12.0-15.5); LYMPH # 0.8 x10^3/uL (1.0-4.8); LYMPH % 15 % (24-48); MEAN CORPUSCULAR HEMOGLOBIN 29 pg (25-35); MEAN CORPUSCULAR HGB CONC 33 g/dL (31-37); MEAN CORPUSCULAR VOLUME 88 fL (79-100); MONO % 17 % (0-9); NEUT # 3.9 x10^3/uL (1.8-7.7); NEUT % 68 % (31-73); PLATELET COUNT 204 x10^3/uL (140-400); RED BLOOD COUNT 4.63 x10^6/uL (3.50-5.40); RED CELL DISTRIBUTION WIDTH 14.7 % (11.5-14.5); WHITE BLOOD COUNT 5.7 x10^3/uL (4.0-11.0)
--- NOTE | 2021-06-29 09:00 | ED.ADGEN ---
Past Medical History Past Medical History: A-Fib, CVA, Hypothyroid Additional Past Medical Histor: Guillain [place] Past Surgical History: Appendectomy, Oophorectomy Smoking Status: Never Smoker Alcohol Use: None Drug Use: None General Adult EDM: Chief Complaint: DIZZY/LIGHT HEADED HPI: HPI: Patient is a 80 year old female coming in via EMS after multiple falls. Per patient's caregiver she is fallen 3 times in the past 12 hours. Last one about 2 hours prior to arrival. Patient complains of spinning sensation. Patient states she has had problems with dizziness for the past year but has been worse over the past 2 days. She states it comes and goes and is worse with movement. Denies any vision changes or double vision. Patient has no other complaints today and some bright knee and rib pain. Denies any subjective fevers but has a temperature of 100.8 here. Denies any cough, nausea vomiting or diarrhea. 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 Patient's caregiver states that she has some baseline weakness from Guillain-Ash that has been getting slightly worse. Patient is taking Pradaxa for A. fib with RVR. Review of Systems: Review of Systems: All other systems within normal limits except for as noted in the HPI Current Medications: Current Medications Medications (Trade) Dose Ordered Sig/Jazmine Start Time Stop Time Status Last Admin Dose Admin Acetaminophen (Tylenol) 650 mg PRN Q4HRS PRN 06/29/21 11:00 06/30/21 10:59 Ascorbic Acid (Vitamin C) 1,000 mg DAILY 06/29/21 11:00 06/29/21 11:35 1,000 MG Dabigatran (Pradaxa) 150 mg BID 06/29/21 11:00 Dexamethasone Sodium Phosphate (Decadron) 6 mg DAILY 06/29/21 11:00 06/29/21 11:35 6 MG Enoxaparin Sodium (Lovenox Per Pharmacy Prophylaxis Dosing) 1 each PRN DAILY PRN 06/29/21 11:00 06/29/21 10:52 DC Info (Anti-Coagulation Monitoring By Pharmacy) 1 each PRN DAILY PRN 06/29/21 11:15 Latanoprost (Xalatan) 1 drop QHS 06/29/21 21:00 Levothyroxine Sodium (Synthroid) 75 mcg DAILY 06/29/21 15:00 Meclizine HCl (Antivert) 25 mg 1X ONCE 06/29/21 08:30 06/29/21 08:49 DC 06/29/21 09:26 25 MG Metoprolol Succinate (Toprol Xl) 50 mg DAILY 06/29/21 11:00 Morphine Sulfate (Morphine Sulfate) 4 mg PRN Q2HR PRN 06/29/21 11:00 06/30/21 10:59 Multivitamins (Thera M Plus) 1 tab DAILY 06/29/21 11:00 06/29/21 11:35 1 TAB Ondansetron HCl (Zofran) 4 mg PRN Q8HRS PRN 06/29/21 11:00 06/30/21 10:59 Sodium Chloride 1,000 ml @ 75 mls/hr [id number] 06/29/21 11:00 06/30/21 10:59 06/29/21 11:34 75 MLS/HR Zinc Sulfate (Orazinc) 220 mg DAILY 06/29/21 11:00 06/29/21 11:35 220 MG Allergies: Allergies: Allergies Coded Allergies Type Severity Reaction Last Updated Verified Influenza Virus Vaccines Allergy Severe GUILIAN BARRE SYNDROME 06/29/21 Yes Physical Exam: PE: Constitutional: Well developed, well nourished, no acute distress, non-toxic appearance. [] HENT: Normocephalic, atraumatic, bilateral external ears normal, nose normal. [] Eyes: PERRLA, conjunctiva normal, no discharge. Extraocular was intact, no nystagmus [] Neck: No rigidity, supple, no stridor. [] Cardiovascular: Irregularly irregular rhythm, brisk cap refill [] Lungs & Thorax: Non labored symmetric respirations, no tachypnea or respiratory distress [] Abdomen: Soft, nondistended. Skin: Warm, dry, no erythema, no rash. [] Back: Unremarkable Extremities: No deformities, range of motion grossly intact, no lower extremity edema [] Neurologic: Alert and oriented X 3, no focal deficits noted. [] Psychologic: Affect normal, judgement normal, mood normal. [] Current Patient Data: Labs: Laboratory Tests Test 06/29/21 08:17 06/29/21 08:42 Influenza Type A Antigen Negative (NEGATIVE) Influenza Type B Antigen Negative (NEGATIVE) SARS-CoV-2 Antigen (Rapid) Positive (NEGATIVE) *A White Blood Count 5.7 x10^3/uL (4.0-11.0) Red Blood Count 4.63 x10^6/uL (3.50-5.40) Hemoglobin 13.4 g/dL (12.0-15.5) Hematocrit 40.7 % (36.0-47.0) Mean Corpuscular Volume 88 fL (79-100) Mean Corpuscular Hemoglobin 29 pg (25-35) Mean Corpuscular Hemoglobin Concent 33 g/dL (31-37) Red Cell Distribution Width 14.7 % (11.5-14.5) H Platelet Count 204 x10^3/uL (140-400) Neutrophils (%) (Auto) 68 % (31-73) Lymphocytes (%) (Auto) 15 % (24-48) L Monocytes (%) (Auto) 17 % (0-9) H Eosinophils (%) (Auto) 0 % (0-3) Basophils (%) (Auto) 1 % (0-3) Neutrophils # (Auto) 3.9 x10^3/uL (1.8-7.7) Lymphocytes # (Auto) 0.8 x10^3/uL (1.0-4.8) L Monocytes # (Auto) 1.0 x10^3/uL (0.0-1.1) Eosinophils # (Auto) 0.0 x10^3/uL (0.0-0.7) Basophils # (Auto) 0.0 x10^3/uL (0.0-0.2) Prothrombin Time 14.4 SEC (11.7-14.0) H Prothrombin Time INR 1.1 (0.8-1.1) Sodium Level 137 mmol/L (136-145) Potassium Level 3.9 mmol/L (3.5-5.1) Chloride Level 101 mmol/L (98-107) Carbon Dioxide Level 29 mmol/L (21-32) Anion Gap 7 (6-14) Blood Urea Nitrogen 13 mg/dL (7-20) Creatinine 0.8 mg/dL (0.6-1.0) Estimated GFR (Cockcroft-Gault) 68.7 BUN/Creatinine Ratio 16 (6-20) Glucose Level 104 mg/dL (70-99) H Calcium Level 8.6 mg/dL (8.5-10.1) Phosphorus Level 3.1 mg/dL (2.6-4.7) Magnesium Level 2.1 mg/dL (1.8-2.4) Total Bilirubin 0.4 mg/dL (0.2-1.0) Aspartate Amino Transferase (AST) 36 U/L (15-37) Alanine Aminotransferase (ALT) 31 U/L (14-59) Alkaline Phosphatase 160 U/L (46-116) H Troponin I High Sensitivity 24 ng/L (4-50) FZ-[id number]-Z-Type Natriuretic Peptide 2018 pg/mL (0-449) H Total Protein 7.4 g/dL (6.4-8.2) Albumin 3.6 g/dL (3.4-5.0) Albumin/Globulin Ratio 0.9 (1.0-1.7) L Laboratory Tests 06/29/21 08:42 Laboratory Tests 06/29/21 08:42 Vital Signs: Vital Signs Date Time Temp Pulse Resp B/P (MAP) Pulse Ox O2 Delivery O2 Flow Rate FiO2 06/29/21 10:42 82 27 108/74 (85) 96 Room Air 06/29/21 08:01 100.8 100.8 EKG: EKG: Atrial fibrillation with a heart rate of 98 bpm, no ST elevation or depression [] Heart Score: C/O Chest Pain: No HEART Score for Chest Pain: HEART Score for Chest Pain Response (Comments) Value History Slighlty/Non-Suspicious 0 ECG Nonspecific Repolarizatio 1 Age > 65 2 Risk Factors 1 or 2 Risk Factors 1 Troponin < Normal Limit 0 Total 4 Risk Factors: Risk Factors: DM, Current or recent (<one month) smoker, HTN, HLP, family history of CAD, obesity. Risk Scores: Score 0 - 3: 2.5% MACE over next 6 weeks - Discharge Home Score 4 - 6: 20.3% MACE over next 6 weeks - Admit for Clinical Observation Score 7 - 10: 72.7% MACE over next 6 weeks - Early Invasive Strategies Radiology/Procedures: Radiology/Procedures: [facility] [address] [place], [place] [id number] IMAGING REPORT Signed PATIENT: HUE HODGSON ACCOUNT: [id number] : 1940 LOCATION: ER AGE: 80 SEX: F EXAM STATUS: REG ER ORD. PHYSICIAN: SHILA LEAL MD REASON: vertigo, falls PROCEDURE: CT HEAD WO CONTRAST CT HEAD/BRAIN WO dated 06/29/2021 8:47 AM. Comparison: CT 09/15/2018. Clinical Indication: Reason: vertigo, falls / Spl. Instructions: / History: Technical factors: Contiguous 5 mm axial images of the head were obtained from the skullbase to the vertex. No contrast was administered. Findings: There is no apparent intracranial mass, hemorrhage or abnormal extra-axial fluid collection. No new area of abnormal density is seen. The ventricles and basilar cisterns are normally positioned. The sinuses and mastoid air cells are clear. Impression: No evidence of acute intracranial abnormality. Electronically signed by: Ta Braden Jr., MD (06/29/2021 9:09 AM) [facility] DICTATED and SIGNED BY: TA BRADEN Jr, MD DATE: 06/29/21 [id number] [] [facility] [address] [place], [place] [id number] IMAGING REPORT Signed PATIENT: HUE HODGSON ACCOUNT: [id number] : 1940 LOCATION: ER AGE: 80 SEX: F EXAM STATUS: REG ER ORD. PHYSICIAN: SHILA LEAL MD REASON: vertigo, falls PROCEDURE: CHEST AP ONLY EXAMINATION: Chest radiograph. VIEWS: 1 COMPARISON: 08/25/2018 INDICATION:80 years, Female, vertigo, falls. FINDINGS: Normal cardiomediastinal silhouette. Right basilar atelectatic changes and/or scarring, similar to prior exam. No focal consolidation. No pleural effusion or pneumothorax. No acute osseous process. IMPRESSION: No acute cardiopulmonary process. Electronically signed by: Nella Meneses MD (06/29/2021 8:52 AM) [id number] DICTATED and SIGNED BY: NELLA MENESES MD DATE: 06/29/21 [id number] Course & Med Decision Making: Course & Med Decision Making Pertinent Labs and Imaging studies reviewed. (See chart for details) Patient with similar episode about 2 years ago when she had increasing weakness second influenza. Patient lives alone but has provider to check on her regularly. Patient had 3 falls in the past 12 hours and is anticoagulated, will admit for physical therapy and possible rehab placement evaluation. [] Dragon Disclaimer: Dragon Disclaimer: This electronic medical record was generated, in whole or in part, using a voice recognition dictation system. Departure Departure Impression: Primary Impression: Vertigo Additional Impressions: COVID Multiple falls Weakness Disposition: ADMITTED INPATIENT Admitting Physician: HIMS Condition: STABLE Referrals: SOREN SALCEDO MD (PCP) Problem Qualifiers SHILA LEAL MD Jun 29, 2021 09:00
[2021-06-29 09:03] LABS: INFLUENZA A PATIENT NEGATIVE (NEGATIVE); INFLUENZA B PATIENT NEGATIVE (NEGATIVE)
[2021-06-29 09:10] LABS: CALCIUM 8.6 mg/dL (8.5-10.1); CREATININE 0.8 mg/dL (0.6-1.0); GFR 68.7; POTASSIUM 3.9 mmol/L (3.5-5.1)
--- NOTE | 2021-06-29 09:12 | RAD ---
CT HEAD/BRAIN WO dated 06/29/2021 8:47 AM. Comparison: CT 09/15/2018. Clinical Indication: Reason: vertigo, falls / Spl. Instructions: / History: Technical factors: Contiguous 5 mm axial images of the head were obtained from the skullbase to the vertex. No contrast was administered. Findings: There is no apparent intracranial mass, hemorrhage or abnormal extra-axial fluid collection. No new a liliana of abnormal density is seen. The ventricles and basilar cisterns are normally positioned. The sin uses and mastoid air cells are clear. Impression: No evidence of acute intracranial abnormality. Electronically signed by: Cecilio Braden Jr., MD (06/29/2021 9:09 AM) [facility]
[2021-06-29 09:15] LABS: PROTHROMBIN TIME PATIENT 14.4 SEC (11.7-14.0)
[2021-06-29 09:16] LABS: ALBUMIN 3.6 g/dL (3.4-5.0); ALBUMIN/GLOBULIN RATIO 0.9 (1.0-1.7); MAGNESIUM 2.1 mg/dL (1.8-2.4); PHOSPHORUS 3.1 mg/dL (2.6-4.7); TOTAL BILIRUBIN 0.4 mg/dL (0.2-1.0); TOTAL PROTEIN 7.4 g/dL (6.4-8.2)
[2021-06-29] MEDS ORDERED: ACETAMINOPHEN 500 MG TABLET PO ONE (09:30)
--- NOTE | 2021-06-29 10:53 | PDOC1 ---
History and Physical Date of Admission Date of Admission DATE: 06/29/21 TIME: 10:48 Source Source: Chart review, Patient History of Present Illness History of Present Illness Ms. Meraz is a 80 year old female admit for multiple falls. She was DC by me a couple years ago, and she doesnt remember me, was an Flu admit then. she tells me all abotu how she cant take any vaccine, Hx Guillan barre, weakness Reports fallen 3 times in the past 12 hours. She thinks her weakness from Guillain-Ash is worse Pos COVID test here. Past Medical History Cardiovascular: AFIB Pulmonary: No pertinent hx CENTRAL NERVOUS SYSTEM: CVA Musculoskeletal: Osteoarthritis Family History Family History: High Cholestrol, Hypertension Social History Smoke: No ALCOHOL: none Drugs: None Current Medications Current Medications Current Medications Meclizine HCl (Antivert) 25 mg 1X ONCE PO Last administered on 06/29/21at 09:26; Start 06/29/21 at 08:30; Stop 06/29/21 at 08:49; Status DC Acetaminophen (Tylenol) 1,000 mg 1X ONCE PO Last administered on 06/29/21at 09:48; Start 06/29/21 at 09:30; Stop 06/29/21 at 09:39; Status DC Active Scripts Active Metoprolol Succinate ( Xl ) (Metoprolol Succinate) 100 Mg Tab.er.24h 0.5 Tab PO DAILY 50mg PO QAM Tamiflu (Oseltamivir Phosphate) 30 Mg Capsule 1 Cap PO BID Azithromycin Tablet (Azithromycin) 250 Mg Tablet 1 Pkg PO UD Reported Pradaxa (Dabigatran Etexilate Mesylate) 150 Mg Capsule 1 Cap PO BID Fish Oil 1,000 mg Softgel (Primrose-3S/Dha/Epa/Fish Oil) 1 Each Capsule 1 Each PO DAILY Glucosamine (Glucosamine Sulfate 2KCL) 1,000 Mg Tablet 1,000 Mg PO DAILY Multivitamins (Multivitamin) 1 Each Tablet 1 Tab PO DAILY Latanoprost 2.5 Ml Drops 1 Drop EACHEYE QHS Unithroid (Levothyroxine Sodium) 75 Mcg Tablet 75 Mcg PO DAILY Allergies Allergies: Coded Allergies: Influenza Virus Vaccines (Verified Allergy, Severe, GUILIAN BARRE SYNDROME, 06/29/21) ROS General: YES: Chills, Fatigue, Malaise PSYCHOLOGICAL ROS: YES: Memory difficulties; No: Anxiety, Behavioral Disorder, Concentration difficultie, Decreased libido, Depression, Disorientation, Hallucinations, Hostility, Irritablity, Mood Swings, Obsessive thoughts, Other Eyes: No Blurry vision, No Decreased vision, No Double vision, No Dry eyes, No Excessive tearing, No Eye Pain, No Itchy Eyes, No Loss of vision, No Photopho teetee, No Scotomata, No Uses contacts, No Uses glasses, No Other Respiratory: No: Cough, Hemoptysis, Orthopnea, Pleuritic Pain, Shortness of breath, SOB with excertion, Sputum Changes, Stridor, Tachypnea, Wheezing, Other Cardiovascular: No Chest Pain, No Palpitations, No Orthopnea, No Paroxysmal Noc. Dyspnea, No Edema, No Lt Headedness, No Other Gastrointestinal: Yes Nausea; No Vomiting, No Abdominal Pain, No Diarrhea, No Constipation, No Melena, No Hematochezia, No Other Genitourinary: No Dysuria, No Frequency, No Incontinence, No Hematuria, No Retention, No Discharge, No Urgency, No Pain, No Flank Pain, No Other, No , No , No , No , No , No , No Musculoskeletal: Yes Gait Disturbance, Yes Muscular Weakness, Yes Pain In:; No Joint Pain, No Joint Stiffness, No Joint Swelling, No Muscle Pain, No Swelling In:, No Other Neurological: Yes Gait Disturbance; No Behavorial Changes, No Bowel/Bladder ControlChng, No Confusion, No Dizziness, No Headaches, No Impaired Coord/balance, No Memory Loss, No Numbness/Tingling, No Seizures, No Speech Problems, No Tremors, No Visual Changes, No Weakness, No Other Skin: No Dry Skin, No Eczema, No Hair Changes, No Lumps, No Mole Changes, No Mottling, No Nail Changes, No Pruritus, No Rash, No Skin Lesion Changes, No Other, No Acne Physical Exam General: Alert, Oriented X3, No acute distress HEENT: Atraumatic, PERRLA, Mucous membr. moist/pink Lungs: Clear to auscultation, Normal air movement Heart: S1S2 Extremities: No edema Skin: No rashes, No significant lesion Neuro: Normal gait, Normal speech, Normal tone, Sensation intact Psych/Mental Status: Mental status NL, Mood NL Vitals Vitals Vital Signs Date Time Temp Pulse Resp B/P (MAP) Pulse Ox O2 Delivery O2 Flow Rate FiO2 06/29/21 10:12 99 21 123/63 (83) 96 Room Air 06/29/21 08:01 100.8 100.8 Labs Labs Laboratory Tests Test 06/29/21 08:17 06/29/21 08:42 Influenza Type A Antigen Negative (NEGATIVE) Influenza Type B Antigen Negative (NEGATIVE) SARS-CoV-2 Antigen (Rapid) Positive (NEGATIVE) White Blood Count 5.7 x10^3/uL (4.0-11.0) Red Blood Count 4.63 x10^6/uL (3.50-5.40) Hemoglobin 13.4 g/dL (12.0-15.5) Hematocrit 40.7 % (36.0-47.0) Mean Corpuscular Volume 88 fL (79-100) Mean Corpuscular Hemoglobin 29 pg (25-35) Mean Corpuscular Hemoglobin Concent 33 g/dL (31-37) Red Cell Distribution Width 14.7 % (11.5-14.5) Platelet Count 204 x10^3/uL (140-400) Neutrophils (%) (Auto) 68 % (31-73) Lymphocytes (%) (Auto) 15 % (24-48) Monocytes (%) (Auto) 17 % (0-9) Eosinophils (%) (Auto) 0 % (0-3) Basophils (%) (Auto) 1 % (0-3) Neutrophils # (Auto) 3.9 x10^3/uL (1.8-7.7) Lymphocytes # (Auto) 0.8 x10^3/uL (1.0-4.8) Monocytes # (Auto) 1.0 x10^3/uL (0.0-1.1) Eosinophils # (Auto) 0.0 x10^3/uL (0.0-0.7) Basophils # (Auto) 0.0 x10^3/uL (0.0-0.2) Prothrombin Time 14.4 SEC (11.7-14.0) Prothromb Time International Ratio 1.1 (0.8-1.1) Sodium Level 137 mmol/L (136-145) Potassium Level 3.9 mmol/L (3.5-5.1) Chloride Level 101 mmol/L (98-107) Carbon Dioxide Level 29 mmol/L (21-32) Anion Gap 7 (6-14) Blood Urea Nitrogen 13 mg/dL (7-20) Creatinine 0.8 mg/dL (0.6-1.0) Estimated GFR (Cockcroft-Gault) 68.7 BUN/Creatinine Ratio 16 (6-20) Glucose Level 104 mg/dL (70-99) Calcium Level 8.6 mg/dL (8.5-10.1) Phosphorus Level 3.1 mg/dL (2.6-4.7) Magnesium Level 2.1 mg/dL (1.8-2.4) Total Bilirubin 0.4 mg/dL (0.2-1.0) Aspartate Amino Transf (AST/SGOT) 36 U/L (15-37) Alanine Aminotransferase (ALT/SGPT) 31 U/L (14-59) Alkaline Phosphatase 160 U/L (46-116) Troponin I High Sensitivity 24 ng/L (4-50) RF-Ctw-T-Type Natriuretic Peptide 2018 pg/mL (0-449) Total Protein 7.4 g/dL (6.4-8.2) Albumin 3.6 g/dL (3.4-5.0) Albumin/Globulin Ratio 0.9 (1.0-1.7) Laboratory Tests Test 06/29/21 08:17 06/29/21 08:42 Influenza Type A Antigen Negative (NEGATIVE) Influenza Type B Antigen Negative (NEGATIVE) SARS-CoV-2 Antigen (Rapid) Positive (NEGATIVE) White Blood Count 5.7 x10^3/uL (4.0-11.0) Red Blood Count 4.63 x10^6/uL (3.50-5.40) Hemoglobin 13.4 g/dL (12.0-15.5) Hematocrit 40.7 % (36.0-47.0) Mean Corpuscular Volume 88 fL (79-100) Mean Corpuscular Hemoglobin 29 pg (25-35) Mean Corpuscular Hemoglobin Concent 33 g/dL (31-37) Red Cell Distribution Width 14.7 % (11.5-14.5) Platelet Count 204 x10^3/uL (140-400) Neutrophils (%) (Auto) 68 % (31-73) Lymphocytes (%) (Auto) 15 % (24-48) Monocytes (%) (Auto) 17 % (0-9) Eosinophils (%) (Auto) 0 % (0-3) Basophils (%) (Auto) 1 % (0-3) Neutrophils # (Auto) 3.9 x10^3/uL (1.8-7.7) Lymphocytes # (Auto) 0.8 x10^3/uL (1.0-4.8) Monocytes # (Auto) 1.0 x10^3/uL (0.0-1.1) Eosinophils # (Auto) 0.0 x10^3/uL (0.0-0.7) Basophils # (Auto) 0.0 x10^3/uL (0.0-0.2) Prothrombin Time 14.4 SEC (11.7-14.0) Prothromb Time International Ratio 1.1 (0.8-1.1) Sodium Level 137 mmol/L (136-145) Potassium Level 3.9 mmol/L (3.5-5.1) Chloride Level 101 mmol/L (98-107) Carbon Dioxide Level 29 mmol/L (21-32) Anion Gap 7 (6-14) Blood Urea Nitrogen 13 mg/dL (7-20) Creatinine 0.8 mg/dL (0.6-1.0) Estimated GFR (Cockcroft-Gault) 68.7 BUN/Creatinine Ratio 16 (6-20) Glucose Level 104 mg/dL (70-99) Calcium Level 8.6 mg/dL (8.5-10.1) Phosphorus Level 3.1 mg/dL (2.6-4.7) Magnesium Level 2.1 mg/dL (1.8-2.4) Total Bilirubin 0.4 mg/dL (0.2-1.0) Aspartate Amino Transf (AST/SGOT) 36 U/L (15-37) Alanine Aminotransferase (ALT/SGPT) 31 U/L (14-59) Alkaline Phosphatase 160 U/L (46-116) Troponin I High Sensitivity 24 ng/L (4-50) YW-Quu-W-Type Natriuretic Peptide 2018 pg/mL (0-449) Total Protein 7.4 g/dL (6.4-8.2) Albumin 3.6 g/dL (3.4-5.0) Albumin/Globulin Ratio 0.9 (1.0-1.7) VTE Prophylaxis Ordered VTE Prophylaxis Devices: No VTE Pharmacological Prophylaxi: Yes Assessment/Plan Assessment/Plan sepsis acute COVID 19 infection atrial fib, rate controlle,d cont pradaxa, chronic diastolic CHF mechanical falls, mult from covid generalized weakness and debility hx GUILLIAN-BARRE remote Justifications for Admission Other Justification ANTONY CABEZAS MD Jun 29, 2021 10:53
[2021-06-29] MEDS ORDERED: ONDANSETRON PF 4 MG/2 ML VIAL. IVP PRN (11:00)
[2021-06-29] MEDS: DABIGATRAN ETEXILATE 150 MG CAPSULE. PO SCH ×2 (11:00→21:22)
[2021-06-29] MEDS: METOPROLOL SUCC 24HR ER 100 MG TAB.ER.24H. PO SCH (11:00)
[2021-06-29] MEDS ORDERED: MORPHINE SULFATE 4 MG/ML INJ. IVP PRN (11:00)
[2021-06-29] MEDS ORDERED: ACETAMINOPHEN 325 MG TABLET. PO PRN (11:00)
[2021-06-29] MEDS ORDERED: ANTI-COAG MONITOR BY PHARMACY. MC PRN (11:15)
[2021-06-29] MEDS: LEVOTHYROXINE 75 MCG TABLET PO SCH (11:23)
[2021-06-29] MEDS: IV NORMAL SALINE 1000ML BAG 1,000 ML IV SCH ×2 (11:34→17:56)
[2021-06-29] MEDS: ZINC SULFATE 220 MG CAPSULE. PO SCH (11:35)
[2021-06-29] MEDS: ASCORBIC ACID 1,000 MG TABLET PO SCH (11:35)
[2021-06-29] MEDS: DEXAMETHASONE SOD PHOS 4 MG/ML VIAL IVP SCH (11:35)
[2021-06-29] MEDS: MULTIVITAMIN with MINERAL TABLET. PO SCH (11:35)
[2021-06-29] MEDS ORDERED: SERT50TA PO (18:37)
[2021-06-29 19:00] VITALS: BP 153/86
[2021-06-29] MEDS: LATANOPROST 0.005% OPHTH SOLUTION 2.5ML BOTTLE. OU SCH (21:22)
[2021-06-29 23:00] VITALS: BP 126/47
[2021-06-30 01:14] LABS: BILIRUBIN,URINE NEGATIVE (NEG); CLARITY,URINE CLEAR; COLOR,URINE YELLOW; NITRITE,URINE NEGATIVE (NEG); PROTEIN,URINE NEGATIVE (NEG-TRACE); UROBILINOGEN,URINE 0.2 mg/dL (0.2 mg/dL)
[2021-06-30 01:44] LABS: BACTERIA,URINE 0 /HPF (0-FEW); RBC,URINE OCC /HPF (0-2); WBC,URINE 0 /HPF (0-4)
[2021-06-30 03:23] VITALS: BP 147/75
[2021-06-30 07:00] VITALS: BP 145/77
--- NOTE | 2021-06-30 07:40 | EKG ---
[facility] [address] [place] [address] Test Date: 2021-06-29 Test Time: 08:13:28 Pat Name: HUE HODGSON Department: Room: [facility] Gender: F Rn Document Improvement: : 1940 Requested By: SHILA LEAL Order Number: [id number] Reading MD: Brady Cox MD Measurements Intervals [place] Rate: 98 P: OR: QRS: 26 QRSD: 84 T: 22 QT: 346 QTc: 444 Interpretive Statements Atrial fibrillation with controlled ventricular response NON-SPECIFIC ST/T CHANGES Electronically Signed On 07-07-2021 18:08:08 INSTRUMENT WORKER by Brady Cox MD
[2021-06-30 07:57] LABS: BASO % 0 % (0-3); EOS % 0 % (0-3); HEMATOCRIT 39.3 % (36.0-47.0); LYMPH # 1.2 x10^3/uL (1.0-4.8); LYMPH % 32 % (24-48); MEAN CORPUSCULAR HEMOGLOBIN 29 pg (25-35); MEAN CORPUSCULAR HGB CONC 33 g/dL (31-37); MEAN CORPUSCULAR VOLUME 88 fL (79-100); MONO # 0.9 x10^3/uL (0.0-1.1); MONO % 25 % (0-9); NEUT # 1.6 x10^3/uL (1.8-7.7); NEUT % 43 % (31-73); PLATELET COUNT 180 x10^3/uL (140-400); RED BLOOD COUNT 4.44 x10^6/uL (3.50-5.40); RED CELL DISTRIBUTION WIDTH 14.2 % (11.5-14.5); WHITE BLOOD COUNT 3.7 x10^3/uL (4.0-11.0)
[2021-06-30] MEDS: MULTIVITAMIN with MINERAL TABLET. PO SCH (08:37)
[2021-06-30] MEDS: ZINC SULFATE 220 MG CAPSULE. PO SCH (08:37)
[2021-06-30] MEDS: LEVOTHYROXINE 75 MCG TABLET PO SCH (08:37)
[2021-06-30] MEDS: ASCORBIC ACID 1,000 MG TABLET PO SCH (08:37)
[2021-06-30] MEDS: DABIGATRAN ETEXILATE 150 MG CAPSULE. PO SCH ×2 (08:37→20:57)
[2021-06-30] MEDS: DEXAMETHASONE SOD PHOS 4 MG/ML VIAL IVP SCH (08:38)
[2021-06-30] MEDS: METOPROLOL SUCC 24HR ER 100 MG TAB.ER.24H. PO SCH (08:40)
[2021-06-30 08:53] LABS: % BANDS 3 % (0-9); % LYMPHS 39 % (24-48); % MONOS 13 % (0-10); % SEGS 45 % (35-66); PLT ESTIMATE ADEQUATE (ADEQUATE)
[2021-06-30 10:05] LABS: ALBUMIN 2.9 g/dL (3.4-5.0); ALBUMIN/GLOBULIN RATIO 0.9 (1.0-1.7); CALCIUM 7.8 mg/dL (8.5-10.1); CREATININE 0.6 mg/dL (0.6-1.0); GFR 95.7; TOTAL BILIRUBIN 0.2 mg/dL (0.2-1.0); TOTAL PROTEIN 6.3 g/dL (6.4-8.2)
[2021-06-30 10:24] LABS: POTASSIUM 4.3 mmol/L (3.5-5.1)
[2021-06-30 11:00] VITALS: BP 114/58
--- NOTE | 2021-06-30 11:18 | NUR ---
SW following. Discussed with RN, pt from home with friend, room air, COVID-19 positive. PT/OT ordered. SW will continue to follow.
[2021-06-30 15:00] VITALS: BP 116/64
[2021-06-30 19:00] VITALS: BP 147/81
[2021-06-30] MEDS: LATANOPROST 0.005% OPHTH SOLUTION 2.5ML BOTTLE. OU SCH (21:02)
[2021-06-30 23:00] VITALS: BP 123/68
--- NOTE | 2021-07-01 00:17 | PDOC ---
[employer] PROGRESS NOTE Date of Service DOS: 06/30 late entry Chief Complaint Chief Complaint sepsis acute COVID 19 infection atrial fib, rate controlle,d cont pradaxa, chronic diastolic CHF mechanical falls, mult from covid generalized weakness and debility hx GUILLIAN-BARRE remote History of Present Illness History of Present Illness 06/30 Evla and examined at bedside. seems like some baseline dementia. work with pt ot today. continue otherwise. Vitals/I&O Vitals/I&O: Vital Signs Date Time Temp Pulse Resp B/P (MAP) Pulse Ox O2 Delivery O2 Flow Rate FiO2 06/30/21 19:00 98.8 104 20 147/81 (103) 95 98.8 06/30/21 15:00 Room Air I & O 06/30/21 06/30/21 07/01/21 15:00 23:00 07:00 Intake Total 420 ml Balance 420 ml Physical Exam General: Alert, Oriented X3, No acute distress Heart: Regular rate Lungs: Clear Abdomen: Normal bowel sounds Extremities: No edema Skin: No rashes, No significant lesion Labs Labs: Laboratory Tests Test 06/30/21 01:00 06/30/21 06:15 06/30/21 06:45 Urine Collection Type Unknown Urine Color Yellow Urine Clarity Clear Urine pH 6.0 (<5.0-8.0) Urine Specific [place] 1.010 (1.000-1.030) Urine Protein Negative mg/dL (NEG-TRACE) Urine Glucose (UA) Negative mg/dL (NEG) Urine Ketones (Stick) Negative mg/dL (NEG) Urine Blood Negative (NEG) Urine Nitrite Negative (NEG) Urine Bilirubin Negative (NEG) Urine Urobilinogen Dipstick 0.2 mg/dL (0.2 mg/dL) Urine Leukocyte Esterase Negative (NEG) Urine RBC Occ /HPF (0-2) Urine WBC 0 /HPF (0-4) Urine Squamous Epithelial Cells Occ /LPF Urine Bacteria 0 /HPF (0-FEW) Sodium Level 139 mmol/L (136-145) Potassium Level 4.3 mmol/L (3.5-5.1) Chloride Level 103 mmol/L (98-107) Carbon Dioxide Level 28 mmol/L (21-32) Anion Gap 8 (6-14) Blood Urea Nitrogen 12 mg/dL (7-20) Creatinine 0.6 mg/dL (0.6-1.0) Estimated GFR (Cockcroft-Gault) 95.7 BUN/Creatinine Ratio 20 (6-20) Glucose Level 81 mg/dL (70-99) Calcium Level 7.8 mg/dL (8.5-10.1) Total Bilirubin 0.2 mg/dL (0.2-1.0) Aspartate Amino Transf (AST/SGOT) 55 U/L (15-37) Alanine Aminotransferase (ALT/SGPT) 32 U/L (14-59) Alkaline Phosphatase 128 U/L (46-116) Total Protein 6.3 g/dL (6.4-8.2) Albumin 2.9 g/dL (3.4-5.0) Albumin/Globulin Ratio 0.9 (1.0-1.7) White Blood Count 3.7 x10^3/uL (4.0-11.0) Red Blood Count 4.44 x10^6/uL (3.50-5.40) Hemoglobin 13.0 g/dL (12.0-15.5) Hematocrit 39.3 % (36.0-47.0) Mean Corpuscular Volume 88 fL (79-100) Mean Corpuscular Hemoglobin 29 pg (25-35) Mean Corpuscular Hemoglobin Concent 33 g/dL (31-37) Red Cell Distribution Width 14.2 % (11.5-14.5) Platelet Count 180 x10^3/uL (140-400) Neutrophils (%) (Auto) 43 % (31-73) Lymphocytes (%) (Auto) 32 % (24-48) Monocytes (%) (Auto) 25 % (0-9) Eosinophils (%) (Auto) 0 % (0-3) Basophils (%) (Auto) 0 % (0-3) Neutrophils # (Auto) 1.6 x10^3/uL (1.8-7.7) Lymphocytes # (Auto) 1.2 x10^3/uL (1.0-4.8) Monocytes # (Auto) 0.9 x10^3/uL (0.0-1.1) Eosinophils # (Auto) 0.0 x10^3/uL (0.0-0.7) Basophils # (Auto) 0.0 x10^3/uL (0.0-0.2) Segmented Neutrophils % 45 % (35-66) Band Neutrophils % 3 % (0-9) Lymphocytes % 39 % (24-48) Monocytes % 13 % (0-10) Platelet Estimate Adequate (ADEQUATE) Assessment and Plan Assessmemt and Plan Problems Medical Problems: (1) COVID Status: Acute (2) Multiple falls Status: Acute (3) Vertigo Status: Acute (4) Weakness Status: Acute Comment Review of Relevant I have reviewed the following items blanca (where applicable) has been applied. Justifications for Admission Other Justification PAMELA SALDANA MD Jul 01, 2021 00:17
[2021-07-01 03:00] VITALS: BP 128/85
[2021-07-01 07:00] VITALS: BP 122/104
[2021-07-01] MEDS: ZINC SULFATE 220 MG CAPSULE. PO SCH (09:11)
[2021-07-01] MEDS: ASCORBIC ACID 1,000 MG TABLET PO SCH (09:11)
[2021-07-01] MEDS: MULTIVITAMIN with MINERAL TABLET. PO SCH (09:11)
[2021-07-01] MEDS: DABIGATRAN ETEXILATE 150 MG CAPSULE. PO SCH ×2 (09:11→20:54)
[2021-07-01] MEDS: DEXAMETHASONE SOD PHOS 4 MG/ML VIAL IVP SCH (09:12)
[2021-07-01] MEDS: METOPROLOL SUCC 24HR ER 100 MG TAB.ER.24H. PO SCH (09:12)
[2021-07-01] MEDS: LEVOTHYROXINE 75 MCG TABLET PO SCH (09:12)
[2021-07-01 11:00] VITALS: BP 128/82
--- NOTE | 2021-07-01 11:30 | NUR ---
SS following up with discharge planning. SS reviewed pt chart and discussed with pt RN. Pt is currently on room air. COVID19 positive. Pt on IV Decadron. PT/OT recommended longterm unit. [facility], ; fax [phone], accepting COVID19 positive pt's at this time. Referral phoned and faxed to [facility]. SS will continue to follow for discharge planning.
[2021-07-01 15:00] VITALS: BP 120/68
[2021-07-01 19:00] VITALS: BP 123/56
[2021-07-01] MEDS: LATANOPROST 0.005% OPHTH SOLUTION 2.5ML BOTTLE. OU SCH (20:52)
[2021-07-01 23:00] VITALS: BP 129/46
[2021-07-02 03:00] VITALS: BP 128/65
[2021-07-02 07:00] VITALS: BP 143/74
[2021-07-02] MEDS: DABIGATRAN ETEXILATE 150 MG CAPSULE. PO SCH (08:54)
[2021-07-02] MEDS: METOPROLOL SUCC 24HR ER 100 MG TAB.ER.24H. PO SCH (08:54)
[2021-07-02] MEDS: ZINC SULFATE 220 MG CAPSULE. PO SCH (08:54)
[2021-07-02] MEDS: LEVOTHYROXINE 75 MCG TABLET PO SCH (08:54)
[2021-07-02] MEDS: ASCORBIC ACID 1,000 MG TABLET PO SCH (08:55)
[2021-07-02] MEDS: DEXAMETHASONE SOD PHOS 4 MG/ML VIAL IVP SCH (08:55)
[2021-07-02] MEDS: MULTIVITAMIN with MINERAL TABLET. PO SCH (08:55)
--- NOTE | 2021-07-02 09:23 | PDOC ---
[facility] PROGRESS NOTE Date of Service DOS: 07/01 late entry Chief Complaint Chief Complaint sepsis acute COVID 19 infection atrial fib, rate controlle,d cont pradaxa, chronic diastolic CHF mechanical falls, mult from covid generalized weakness and debility hx GUILLIAN-BARRE remote History of Present Illness History of Present Illness 07/01 Seen and examined at bedside. Pleasantly confused. Treat covid. 06/30 Evla and examined at bedside. seems like some baseline dementia. work with pt ot today. continue otherwise. Vitals/I&O Vitals/I&O: Vital Signs Date Time Temp Pulse Resp B/P (MAP) Pulse Ox O2 Delivery O2 Flow Rate FiO2 07/02/21 08:54 59 143/74 07/02/21 07:00 98.0 18 96 Room Air 98.0 I & O 07/01/21 07/01/21 07/02/21 15:00 23:00 07:00 Intake Total 220 ml 180 ml Output Total 200 ml 250 ml Balance 220 ml -20 ml -250 ml Physical Exam General: Alert, Oriented X3, No acute distress Heart: Regular rate Lungs: Clear Abdomen: Normal bowel sounds Extremities: No edema Skin: No rashes, No significant lesion Assessment and Plan Assessmemt and Plan Problems Medical Problems: (1) COVID Status: Acute (2) Multiple falls Status: Acute (3) Vertigo Status: Acute (4) Weakness Status: Acute Comment Review of Relevant I have reviewed the following items blanca (where applicable) has been applied. Justifications for Admission Other Justification PAMELA SALDANA MD Jul 02, 2021 09:23
[2021-07-02 11:00] VITALS: BP 100/46
[2021-07-02] MEDS ORDERED: DEXA6TAB6 PO (13:19)
--- NOTE | 2021-07-02 13:20 | SNU/HH DC ---
DISCHARGE ORDERS DISCHARGE INFORMATION: DISCHARGE DATE: Jul 02, 2021 FINAL DIAGNOSIS Problems Medical Problems: (1) COVID Status: Acute (2) Multiple falls Status: Acute (3) Vertigo Status: Acute (4) Weakness Status: Acute CONDITION ON DISCHARGE: Stable CODE STATUS: Code Status: DNR/DNI LONG-TERM: SNF STAY <30 DAYS: Yes POST DISCHARGE ORDERS: ACTIVITY ORDERS: Activity as tolerated WEIGHT BEARING STATUS: As tolerated DIET AFTER DISCHARGE: Regular WOUND/INCISION CARE: Ice to area for comfort CHECKS AFTER DISCHARGE: CHECKS AFTER DISCHARGE: Check blood press - daily, Check your Temp as needed TREATMENT/EQUIPMENT ORDERS: ADAPTIVE EQUIPMENT NEEDED: None Physical Therapy For: Evalulation/Treatment Occupational Therapy For: Evaluation/Treatment DISCHARGE MEDICATIONS: Home Meds Active Scripts Dexamethasone (Decadron) 6 Mg Tablet, 6 MG PO DAILY for coid for 7 Days, #7 TAB Prov:PAMELA SALDANA MD 07/02/21 Metoprolol Succinate (METOPROLOL SUCCINATE ( XL )) 100 Mg Tab.er.24h, 0.5 TAB PO DAILY for afib, #30 TAB 50mg PO QAM Prov:ANTONY CABEZAS MD 08/26/18 Reported Medications Sertraline Hcl (ZOLOFT) 50 Mg Tablet, 50 MG PO DAILY for ANTI-DEPRESSANT, TAB 0 Refills 06/29/21 Dabigatran Etexilate Mesylate (PRADAXA) 150 Mg Capsule, 1 CAP PO BID for blood thinner, #60 CAP 5 Refills 08/25/18 Bricelyn-3S/Dha/Epa/Fish Oil (Fish Oil 1,000 mg Softgel) 1 Each Capsule, 1 EACH PO DAILY for supplement, CAP 08/25/18 Glucosamine Sulfate 2KCL (GLUCOSAMINE) 1,000 Mg Tablet, 1000 MG PO DAILY for joints, TAB 08/25/18 Multivitamin (MULTIVITAMINS) 1 Each Tablet, 1 TAB PO DAILY for adequate nutrition, #30 TAB 2 Refills 08/25/18 Latanoprost (LATANOPROST) 2.5 Ml Drops, 1 DROP EACHEYE QHS for cataracts, #7.5 ML 3 Refills 08/25/18 Levothyroxine Sodium (UNITHROID) 75 Mcg Tablet, 75 MCG PO DAILY 08/20/13 Discontinued Scripts Oseltamivir Phosphate (TAMIFLU) 30 Mg Capsule, 1 CAP PO BID for flu, #10 CAP Prov:ANTONY CABEZAS MD 08/26/18 Azithromycin (AZITHROMYCIN TABLET) 250 Mg Tablet, 1 PKG PO UD for flu, #5 TAB Prov:ANTONY CABEZAS MD 08/26/18 PAMELA SALDANA MD Jul 02, 2021 13:19
--- NOTE | 2021-07-02 13:21 | NUR ---
SW following. Discussed with RN, pt accepted at [facility] and can discharge today. Pt's friend, Jess agreeable. Awaiting discharge orders and transportation time. CRISTIANO will continue to follow. Addendum: 07/02/21 at 1408 by TY QUINONEZ Transportation arranged by [facility] for between [id number]. OLEG and Jess notified.
--- NOTE | 2021-07-02 13:36 | PDOC3 ---
[facility]-Discharge Summary Date of Admission: Date of Admission: Jun 29, 2021 Date of Discharge: Date of Discharge: Jul 02, 2021 Admission Diagnosis: Problems: (1) Multiple falls (2) Weakness (3) COVID Hospital Course: Hospital Course: hief Complaint sepsis acute COVID 19 infection atrial fib, rate controlle,d cont pradaxa, chronic diastolic CHF mechanical falls, mult from covid generalized weakness and debility hx GUILLIAN-BARRE remote History of Present Illness History of Present Illness 07/02 seen and examined at bedside. doing well. discharging to snf today. >30min spend on d/c. 07/01 Seen and examined at bedside. Pleasantly confused. Treat covid. 06/30 Evla and examined at bedside. seems like some baseline dementia. work with pt ot today. continue otherwise. Disposition: Disposition/Orders: D/C to Another Facility Activity: Activity: Resume previous activity Diet: Diet: Regular Medications: Home Meds Active Scripts Dexamethasone (Decadron) 6 Mg Tablet, 6 MG PO DAILY for coid for 7 Days, #7 TAB Prov:PAMELA SALDANA MD 07/02/21 Metoprolol Succinate (METOPROLOL SUCCINATE ( XL )) 100 Mg Tab.er.24h, 0.5 TAB PO DAILY for afib, #30 TAB 50mg PO QAM Prov:ANTONY CABEZAS MD 08/26/18 Reported Medications Sertraline Hcl (ZOLOFT) 50 Mg Tablet, 50 MG PO DAILY for ANTI-DEPRESSANT, TAB 0 Refills 06/29/21 Dabigatran Etexilate Mesylate (PRADAXA) 150 Mg Capsule, 1 CAP PO BID for blood thinner, #60 CAP 5 Refills 08/25/18 Dyess-3S/Dha/Epa/Fish Oil (Fish Oil 1,000 mg Softgel) 1 Each Capsule, 1 EACH PO DAILY for supplement, CAP 08/25/18 Glucosamine Sulfate 2KCL (GLUCOSAMINE) 1,000 Mg Tablet, 1000 MG PO DAILY for joints, TAB 08/25/18 Multivitamin (MULTIVITAMINS) 1 Each Tablet, 1 TAB PO DAILY for adequate nutrition, #30 TAB 2 Refills 08/25/18 Latanoprost (LATANOPROST) 2.5 Ml Drops, 1 DROP EACHEYE QHS for cataracts, #7.5 ML 3 Refills 08/25/18 Levothyroxine Sodium (UNITHROID) 75 Mcg Tablet, 75 MCG PO DAILY 08/20/13 Discontinued Scripts Oseltamivir Phosphate (TAMIFLU) 30 Mg Capsule, 1 CAP PO BID for flu, #10 CAP Prov:ANTONY CABEZAS MD 08/26/18 Azithromycin (AZITHROMYCIN TABLET) 250 Mg Tablet, 1 PKG PO UD for flu, #5 TAB Prov:ANTONY CABEZAS MD 08/26/18 Scheduled Dabigatran Etexilate Mesylate (Pradaxa), 1 CAP PO BID, (Reported) Dexamethasone (Decadron), 6 MG PO DAILY Glucosamine Sulfate 2KCL (Glucosamine), 1,000 MG PO DAILY, (Reported) Latanoprost (Latanoprost), 1 DROP EACHEYE QHS, (Reported) Levothyroxine Sodium (Unithroid), 75 MCG PO DAILY, (Reported) Metoprolol Succinate (Metoprolol Succinate ( Xl )), 0.5 TAB PO DAILY Multivitamin (Multivitamins), 1 TAB PO DAILY, (Reported) Dyess-3S/Dha/Epa/Fish Oil (Fish Oil 1,000 mg Softgel), 1 EACH PO DAILY, (Reported) Sertraline Hcl (Zoloft), 50 MG PO DAILY, (Reported) Discontinued Medications Azithromycin (Azithromycin Tablet), 1 PKG PO UD Oseltamivir Phosphate (Tamiflu), 1 CAP PO BID Justicifation of Admission Dx: Justifications for Admission: Justification of Admission Dx: Yes (fall, weakness) PAMELA SALDANA MD Jul 02, 2021 13:36
--- NOTE | 2021-07-02 14:35 | NUR ---
REPORT CALLED TO PHILOMENA AT [facility], QUESTIONS AND CONCERNS ANSWERED, ALL PERSONAL BELONGINGS GATHERED AND PLACED IN BAGS PER SHOP WORKER, SALINE LOCK REMOVED FROM LEFT WRIST AREA, PATIENT DRESSED AND UP IN W/C AWAITING TRANSPORT, PATIENTS' DAUGHTER ANNALEE INFORMED.
--- NOTE | 2021-07-02 14:50 | NUR ---
PATIENT LEAVES THE UNIT PER W/C EMOTIONAL SUPPORT GIVEN, FOLLOW UP APPOINTMENTS ENCOURAGED.
== END 2021-07-02 14:50 | DRG 177 ==
LOC: ER 08:01 → ED HOLD 10:10 → 5 NORTH 11:39
PROVIDERS: ADMIT Internal Medicine; ATTEND Internal Medicine
DX: U07.1 COVID-19 (principal); A41.89 Other specified sepsis; I50.32 Chronic diastolic (congestive) heart failure; E03.9 Hypothyroidism, unspecified; I48.91 Unspecified atrial fibrillation; R29.6 Repeated falls; Z82.49 Family history of ischemic heart disease and other diseases of the circulatory system; Z86.73 Personal history of transient ischemic attack (TIA), and cerebral infarction without residual deficits; Z90.49 Acquired absence of other specified parts of digestive tract; M19.90 Unspecified osteoarthritis, unspecified site; Z66 Do not resuscitate
CPT/HCPCS: 36415; 70450; 71045; 80053; 81001; 83735; 83880; 84100; 84484; 85007; 85025; 85610; 87428; 93005; 96374; J1100; J7030; 97116-GP; 97530-GP; 99285-25; G0378; J8597

== ENCOUNTER 2021-07-14 12:39 | Emergency (ER) | payer MEDICARE ==
[~2021-07-14] VITALS: Ht 162.6 cm; Wt 85.0 kg
[~2021-07-14 12:39] MED LIST changes: +DEXA6TAB6 PO; +SERT50TA PO
--- NOTE | 2021-07-14 13:16 | PHYS DOC ---
Past Medical History Past Medical History: A-Fib, CVA, Hypothyroid Additional Past Medical Histor: Guillain [place] Past Surgical History: Other Smoking Status: Never Smoker Alcohol Use: None Drug Use: None General Adult EDM: Chief Complaint: DIZZY/LIGHT HEADED HPI: HPI: Patient is a 81 year old female who presents with stood up and became dizzy. She states this is what happened that she was 15 but this time lasted just a bit longer than usually. She was here on June 29 and diagnosed with vertigo. She has CT of her head at that time that showed no acute findings. She has been Covid positive for the last 8 days. She states she did not fall and she did not have syncope. She states she is no longer dizzy and it now resolved. Patient has a history of A. fib, hypothyroidism, CVA, Brain Ash. She denies chest pain, shortness of breath, cough, syncope, falling, hitting her head, neck pain, back pain, numbness or tingling, focal weakness, abdominal pain, nausea, vomiting, diarrhea. Review of Systems: Review of Systems: Constitutional: Denies fever or chills. [] Eyes: Denies change in visual acuity. [] HENT: Denies nasal congestion or sore throat. [] Respiratory: Denies cough or shortness of breath. [] Cardiovascular: Denies chest pain or edema. [] GI: Denies abdominal pain, nausea, vomiting, bloody stools or diarrhea. [] : Denies dysuria. [] Musculoskeletal: Denies back pain or joint pain. [] Integument: Denies rash. [] Neurologic: Denies headache, focal weakness or sensory changes. +Dizziness[] Endocrine: Denies polyuria or polydipsia. [] Lymphatic: Denies swollen glands. [] Psychiatric: Denies depression or anxiety. [] Heart Score: C/O Chest Pain: No HEART Score for Chest Pain: HEART Score for Chest Pain Response (Comments) Value History Slighlty/Non-Suspicious 0 ECG Nonspecific Repolarizatio 1 Age > 65 2 Risk Factors 1 or 2 Risk Factors 1 Troponin < Normal Limit 0 Total 4 Risk Factors: Risk Factors: DM, Current or recent (<one month) smoker, HTN, HLP, family history of CAD, obesity. 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 [] HENT: Normocephalic, atraumatic, bilateral external ears normal, oropharynx moist, no oral exudates, nose normal. [] Eyes: PERRLA, EOMI, conjunctiva normal, no discharge. [] Neck: Normal range of motion, no tenderness, supple, no stridor. [] Cardiovascular:Heart rate regular rhythm, no murmur [] Lungs & Thorax: Bilateral upper breath sounds clear and lower diminished to auscultation [] Abdomen: Bowel sounds normal, soft, no tenderness, no masses, no pulsatile masses. [] Skin: Warm, dry, no erythema, no rash. [] Back: No tenderness, no CVA tenderness. [] Extremities: No tenderness, no cyanosis, no clubbing, ROM intact, no edema. [] Neurologic: Alert and oriented X 3, normal motor function, normal sensory function, no focal deficits noted. [] Psychologic: Affect normal, judgement normal, mood normal. [] EKG: EK and read by Dr Reese as Irregular rhythm no STEMI Radiology/Procedures: Radiology/Procedures: [] Impression: [facility] [address] [place] [address] IMAGING REPORT Signed PATIENT: HUE HODGSON ACCOUNT: [id number] : 1940 LOCATION: ER AGE: 81 SEX: F EXAM STATUS: REG ER ORD. PHYSICIAN: PAULO STOCK APRN REASON: dizziness, fall PROCEDURE: PORTABLE CHEST 1V EXAM: CHEST 1 VIEW History: Dizziness, fall COMPARISON: 06/29/2021 TECHNIQUE: Single portable radiograph of the chest FINDINGS: Mild cardiomegaly. Mild bibasilar lung atelectasis or infiltrates. The costophrenic sulci are clear and well demarcated. IMPRESSION: Mild bibasilar lung atelectasis or infiltrates. Electronically signed by: Storm Ahmadi MD (07/14/2021 1:25 PM) [id number] DICTATED and SIGNED BY: STORM AHMADI MD DATE: 07/14/21 [id number] [facility] [address] [place] [address] IMAGING REPORT Signed PATIENT: HUE HODGSON ACCOUNT: [id number] : 1940 LOCATION: ER AGE: 81 SEX: F EXAM STATUS: REG ER ORD. PHYSICIAN: PAULO STOCK APRN REASON: dizziness PROCEDURE: CT HEAD WO CONTRAST INDICATION: Reason: dizziness / Spl. Instructions: / History: COMPARISON: June 29, 2021 TECHNIQUE: Axial CT images obtained through the head without intravenous contrast. One or more of the following individualized dose reduction techniques were utilized for this examination: 1. Automated exposure control; 2. Adjustment of the mA and/or kV according to patient size; 3. Use of iterative reconstruction technique. FINDINGS: No intracranial hemorrhage. No significant midline shift. Ventricles and sulci are globally prominent. Scattered foci of low attenuation within the white matter. Calcific atherosclerosis. Chronic appearing deformity of the right temporomandibular joint. IMPRESSION: * No acute intracranial hemorrhage. * Scattered regions of low attenuation within the white matter. Non-specific in nature but a common finding and frequently secondary to small vessel ischemic disease. If there is high concern for acute causes clinically MRI could better assess acuity. Electronically signed by: Markell Dudley MD (07/14/2021 2:10 PM) [id number] DICTATED and SIGNED BY: MARKELL DUDLEY MD DATE: 07/14/21 [id number] 0 Course & Med Decision Making: Course & Med Decision Making Pertinent Labs and Imaging studies reviewed. (See chart for details) See HPI. Alert and oriented x4. Ambulatory with a steady gait. Moving all extremities. Equal strengths. PERRLA. Answers all questions appropriately. Follows all commands appropriately. Denies any symptoms at this time. [id number] intact. Slight nystagmus. Slight UTI. Patient has been completely asymptomatic since she has been here. She has been up and walked steadily with her cane without any current dizziness. Orthostatics are normal. Chest x-ray shows some atelectasis or possibly some pneumonia. She is not hypoxic. She has no fever. She received normal saline bolus and Rocephin through her IV. She has ate a meal and drink since she has been here. Patient has no complications. Her NIH is completely normal. [] Dragon Disclaimer: Dragon Disclaimer: This electronic medical record was generated, in whole or in part, using a voice recognition dictation system. NIHSS Stroke Scale NIH Stroke Scale: NIH Stroke Scale Response (Comments) Value Level of Consciousness: 0 Alert/Responsive 0 LOC Questions: 0 Answers both correctly 0 LOC Commands: 0 Performs both tasks 0 Best Gaze: 0 Normal 0 Visual: 0 No visual loss 0 Facial Palsy: 0 Normal, symmetrical 0 Motor - Left Arm 0 No drift 0 Motor - Right Arm 0 No drift 0 Motor - Left Leg 0 No drift 0 Motor: Right Leg 0 No drift 0 Limb Ataxia: 0 Absent 0 Sensory: 0 No loss 0 Best Language: 0 Normal 0 Dysathria: 0 Normal 0 Extinction and Inattention: 0 Normal 0 Total 0 Departure Departure Impression: Primary Impression: Dizziness Additional Impression: Urinary tract infection Qualified Codes: N39.0 - Urinary tract infection, site not specified Disposition: 01 HOME / SELF CARE / HOMELESS Condition: STABLE Referrals: SOREN SALCEDO MD (PCP) Patient Instructions: Dizziness, Urinary Tract Infection Additional Instructions: Follow-up with primary care provider soon as possible. Drink plenty of fluids. If you develop a headache, severe dizziness, as of breath, nausea, vomiting or chest pain return to the emergency room. Take medication as prescribed and with food. Scripts Cephalexin (KEFLEX) 500 Mg Capsule 1 CAP PO TID, #21 CAP Prov: PAULO STOCK APRN 07/14/21 PAULO STOCK APRN Jul 14, 2021 13:16
[2021-07-14 13:22] LABS: BASO % 1 % (0-3); EOS # 0.1 x10^3/uL (0.0-0.7); EOS % 1 % (0-3); HEMATOCRIT 36.9 % (36.0-47.0); HEMOGLOBIN 12.3 g/dL (12.0-15.5); LYMPH # 1.1 x10^3/uL (1.0-4.8); LYMPH % 11 % (24-48); MEAN CORPUSCULAR HEMOGLOBIN 29 pg (25-35); MEAN CORPUSCULAR HGB CONC 33 g/dL (31-37); MEAN CORPUSCULAR VOLUME 88 fL (79-100); MONO # 1.3 x10^3/uL (0.0-1.1); MONO % 13 % (0-9); NEUT # 7.3 x10^3/uL (1.8-7.7); NEUT % 74 % (31-73); PLATELET COUNT 251 x10^3/uL (140-400); RED BLOOD COUNT 4.18 x10^6/uL (3.50-5.40); RED CELL DISTRIBUTION WIDTH 13.8 % (11.5-14.5); WHITE BLOOD COUNT 9.8 x10^3/uL (4.0-11.0)
--- NOTE | 2021-07-14 13:27 | RAD ---
EXAM: CHEST 1 VIEW History: Dizziness, fall COMPARISON: 06/29/2021 TECHNIQUE: Single portable radiograph of the chest FINDINGS: Mild cardiomegaly. Mild bibasilar lung atelectasis or infiltrates. The costophrenic sulci are clear and well demarcated. IMPRESSION: Mild bibasilar lung atelectasis or infiltrates. Electronically signed by: Storm Ahmadi MD (07/14/2021 1:25 PM) [id number]
[2021-07-14 13:46] LABS: CALCIUM 8.5 mg/dL (8.5-10.1); CREATININE 0.8 mg/dL (0.6-1.0); GFR 68.5; POTASSIUM 4.1 mmol/L (3.5-5.1)
[2021-07-14 13:51] LABS: ALBUMIN 2.7 g/dL (3.4-5.0); ALBUMIN/GLOBULIN RATIO 0.8 (1.0-1.7); MAGNESIUM 2.4 mg/dL (1.8-2.4); TOTAL BILIRUBIN 0.6 mg/dL (0.2-1.0); TOTAL PROTEIN 6.3 g/dL (6.4-8.2)
--- NOTE | 2021-07-14 14:12 | RAD ---
INDICATION: Reason: dizziness / Spl. Instructions: / History: COMPARISON: June 29, 2021 TECHNIQUE: Axial CT images obtained through the head without intravenous contrast. One or more of the following individualized dose reduction techniques were utilized for this examinat ion: 1. Automated exposure control; 2. Adjustment of the mA and/or kV according to patient size; 3 . Use of iterative reconstruction technique. FINDINGS: No intracranial hemorrhage. No significant midline shift. Ventricles and sulci are globally prominent. Scattered foci of low attenuation within the white matter. Calcific atherosclerosis. Chronic appearing deformity of the right temporomandibular joint. IMPRESSION: * No acute intracranial hemorrhage. * Scattered regions of low attenuation within the white matter. Non-specific in nature but a common finding and frequently secondary to small vessel ischemic disease. If there is high concern for acut e causes clinically MRI could better assess acuity. Electronically signed by: Jonathon Penny MD (07/14/2021 2:10 PM) [id number]
[2021-07-14 16:27] LABS: BILIRUBIN,URINE SMALL (NEG); CLARITY,URINE CLEAR; COLOR,URINE AMBER; NITRITE,URINE NEGATIVE (NEG); PROTEIN,URINE NEGATIVE (NEG-TRACE)
[2021-07-14 16:42] LABS: HYALINE CASTS, URINE MODERATE /HPF
[2021-07-14 16:43] LABS: AMORPHOUS SEDIMENT,UR PRESENT /HPF
[2021-07-14 16:46] LABS: BACTERIA,URINE FEW /HPF (0-FEW)
[2021-07-14] MEDS: IV NORMAL SALINE 500ML BAG 500 ML IV ONE (17:00)
[2021-07-14] MEDS: cefTRIAXone IV Push 1 GM VIAL. IVP ONE (17:00)
[2021-07-14] MEDS ORDERED: CEPH500C PO (17:38)
[2021-07-14 17:56] VITALS: BP 167/78
--- NOTE | 2021-07-14 18:23 | EKG ---
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
== END 2021-07-14 19:24 | disposition home or self-care (01) ==
LOC: ER 12:39
DX: N39.0 Urinary tract infection, site not specified (principal); R42 Dizziness and giddiness; I48.91 Unspecified atrial fibrillation; E03.9 Hypothyroidism, unspecified; Z86.73 Personal history of transient ischemic attack (TIA), and cerebral infarction without residual deficits; Z88.7 Allergy status to serum and vaccine
CPT/HCPCS: 36415; 70450; 71045; 80053; 81001; 83735; 83880; 84484; 85025; 87077; 87086; 87186; 93005; 96361; 96374; 99285; J0696; J7040

== ENCOUNTER 2021-09-12 10:22 | Emergency (ER) | payer MEDICARE ==
[~2021-09-12] VITALS: Ht 154.9 cm; Wt 91.0 kg
[~2021-09-12 10:22] MED LIST changes: +CEPH500C PO
--- NOTE | 2021-09-12 10:24 | PHYS DOC ---
Past Medical History Past Medical History: A-Fib, CVA, Hypothyroid Additional Past Medical Histor: Guillain [place] Past Surgical History: Other Smoking Status: Never Smoker Alcohol Use: None Drug Use: None General Adult HPI: HPI: Patient is a 81 year old female who presents via EMS from her [facility] facility in [facility], for evaluation of a scalp hematoma. She was leaning backwards in her chair, fell backwards and hit the back of her head. No loss of consciousness. No premonitory symptoms. She denies any headache or neck pain or back pain. She denies numbness or tingling or focal motor weakness. No change in behavior. She is taking Pradaxa. No previous history of head injury, no history of serious hemorrhaging. She has no complaints. This occurred shortly prior to arrival here today. No chest pain, dyspnea, palpitations, abdominal pain, nausea or vomiting reported. Open skin wounds, lacerations or abrasions reported. No other injuries are reported. Review of Systems: Review of Systems: As per HPI. Heart Score: C/O Chest Pain: No Risk Factors: Risk Factors: DM, Current or recent (<one month) smoker, HTN, HLP, family history of CAD, obesity. 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 [] HENT: Normocephalic, he has a moderate sized, round tissue contusion/hematoma on the mid posterior occiput. No tenderness. No step-offs or deformity. Nares are patent clear without rhinorrhea or epistaxis. TMs are clear bilaterally, no hemotympanum, no otorrhea. No midface tenderness, swelling or deformity. Mucous membranes are moist. No oral or dental trauma Eyes: PERRL, EOMI, conjunctiva normal, no discharge. No nystagmus. No periorbital edema, erythema or contusion. Neck: Normal range of motion, no tenderness, supple, no stridor. No midline tenderness or step-offs. Cardiovascular:Heart rate regular rhythm Lungs & Thorax: Bilateral breath sounds clear to auscultation [] Abdomen: Bowel sounds normal, soft, no tenderness, no masses, no pulsatile masses. [] Skin: Warm, dry, no erythema, no rash. No open wounds, lacerations or abrasions. Soft tissue contusion/hematoma of the scalp, as detailed above. Back: No tenderness, no CVA tenderness. Range of motion. No midline tenderness or step-offs. Extremities: No tenderness, no cyanosis, no clubbing, ROM intact, no edema. [] Neurologic: Alert and oriented X 3, normal motor function, normal sensory function, no focal deficits noted. Cranial nerves II through XII grossly intact. 5 out of 5 motor strength all 4 extremities. No limb ataxia. Speech is clear and fluent Psychologic: Affect normal, judgement normal, mood normal. She is pleasant and cooperative. EKG: EKG: [] Radiology/Procedures: Radiology/Procedures: IMAGING REPORT Signed PATIENT: HUE HODGSON ACCOUNT: [id number] : 1940 LOCATION: ER AGE: 81 SEX: F EXAM STATUS: PRE ER ORD. PHYSICIAN: BRIDGET STEVENS DO REASON: fall PROCEDURE: CT HEAD AND CERVICAL SPINE WO Exam Date: 09/12/2021 11:[address] HEAD AND C-SPINE WO Indication: Reason: fall / Spl. Instructions: / History: . One or more of the following dose reduction techniques were utilized: *Automated exposure control (AEC) *Adjustment of mA and/or kV according to patient size *Use of iterative reconstruction technique *CT scan done according to ALARA, or ALARA/IMAGE GENTLY EXAMINATION: CT OF THE HEAD WITHOUT CONTRAST INDICATION: Trauma, head injury, headache; TECHNIQUE: Noncontrast helical axial CT images of the head were obtained. COMPARISON: July 14, 2021 FINDINGS: There is left posterior parietal scalp soft tissue swelling and hematoma without depressed skull fracture. The ventricles and sulci are prominent consistent with cerebral volume loss. Patchy ill-defined low attenuation areas in the subcortical and periventricular white matter bilaterally are consistent with microvascular disease. There is no evidence of acute intracranial hemorrhage, extra-axial collection, mass effect, midline shift, or acute territorial infarct. The visualized paranasal sinuses, mastoid air cells, and orbits are normal in appearance. IMPRESSION: Left posterior parietal scalp soft tissue swelling and hematoma without depressed skull fracture. No evidence for acute intracranial abnormality. Volume loss and microvascular disease. EXAMINATION: CT OF THE CERVICAL SPINE WITHOUT CONTRAST Clinical Indication: Cervical spine pain after trauma Technique: Thin cut helical axial CT images through the cervical spine were obtained without contrast on a multi-detector CT scanner. Source data was then reconstructed into sagittal and coronal planes. Findings: There is minimal grade 1 anterolisthesis of C2 on C3, likely degenerative. Alignment is otherwise maintained. Vertebral body heights are maintained without acute fracture. Moderate multilevel degenerative changes are noted. No significant prevertebral soft tissue swelling is demonstrated. No severe osseous central canal stenosis is seen. Impression: No evidence of acute cervical spine fracture. Moderate degenerative changes noted. Electronically signed by: Dedrick Guerrero MD (09/12/2021 11:33 AM) [id number] DICTATED and SIGNED BY: DEDRICK GUERRERO MD DATE: 09/12/21 1127 Course & Med Decision Making: Course & Med Decision Making Pertinent Labs and Imaging studies reviewed. (See chart for details) Patient declined pain medication here. She is well appearing, has a nonfocal neurologic exam. I discussed the findings, differential diagnosis and plan of care with her. No indication for further invasive exams, imaging or admission at this time. Home care instructions are provided. Return precautions are given Dragon Disclaimer: Dragon Disclaimer: This electronic medical record was generated, in whole or in part, using a voice recognition dictation system. Departure Departure Impression: Primary Impression: Scalp hematoma Qualified Codes: S00.03XA - Contusion of scalp, initial encounter Additional Impression: Fall Qualified Codes: W19.XXXA - Unspecified fall, initial encounter Disposition: 03 [facility] FACILITY Condition: STABLE Referrals: SOREN SALCEDO MD (PCP) Patient Instructions: Fall Prevention and Home Safety, Scalp Hematoma Additional Instructions: You may use an ice pack to help with pain and swelling. You may take [id number] Tylenol for any mild pain. Return to the ER immediately for new injury or trauma, severe headache, vomiting, dizziness, weakness or other concerns. Please follow-up with your primary care physician. BRIDGET STEVENS DO Sep 12, 2021 10:24
--- NOTE | 2021-09-12 11:36 | RAD ---
Exam Date: 09/12/2021 11:[address] HEAD AND C-SPINE WO Indication: Reason: fall / Spl. Instructions: / History: . One or more of the following dose reduction techniques were utilized: *Automated exposure control (AEC) *Adjustment of mA and/or kV according to patient size *Use of iterative reconstruction technique *CT scan done according to ALARA, or ALARA/IMAGE GENTLY EXAMINATION: CT OF THE HEAD WITHOUT CONTRAST INDICATION: Trauma, head injury, headache; TECHNIQUE: Noncontrast helical axial CT images of the head were obtained. COMPARISON: July 14, 2021 FINDINGS: There is left posterior parietal scalp soft tissue swelling and hematoma without depressed skull frac ture. The ventricles and sulci are prominent consistent with cerebral volume loss. Patchy ill-defined low attenuation areas in the subcortical and periventricular white matter bilaterally are consistent with microvascular disease. There is no evidence of acute intracranial hemorrhage, extra-axial collecti on, mass effect, midline shift, or acute territorial infarct. The visualized paranasal sinuses, masto id air cells, and orbits are normal in appearance. IMPRESSION: Left posterior parietal scalp soft tissue swelling and hematoma without depressed skull fracture. No evidence for acute intracranial abnormality. Volume loss and microvascular disease. EXAMINATION: CT OF THE CERVICAL SPINE WITHOUT CONTRAST Clinical Indication: Cervical spine pain after trauma Technique: Thin cut helical axial CT images through the cervical spine were obtained without contrast on a multi-detector CT scanner. Source data was then reconstructed into sagittal and coronal planes. Findings: There is minimal grade 1 anterolisthesis of C2 on C3, likely degenerative. Alignment is otherwise ma intained. Vertebral body heights are maintained without acute fracture. Moderate multilevel degenerative change s are noted. No significant prevertebral soft tissue swelling is demonstrated. No severe osseous cent ral canal stenosis is seen. Impression: No evidence of acute cervical spine fracture. Moderate degenerative changes noted. Electronically signed by: Thierry Guerrero MD (09/12/2021 11:33 AM) [id number]
[2021-09-12 12:30] VITALS: BP 134/77
== END 2021-09-12 13:34 | disposition home or self-care (01) ==
LOC: ER 10:22
DX: S00.03XA Contusion of scalp, initial encounter (principal); M54.2 Cervicalgia; R51.9 Headache, unspecified; I48.91 Unspecified atrial fibrillation; E03.9 Hypothyroidism, unspecified; Z86.73 Personal history of transient ischemic attack (TIA), and cerebral infarction without residual deficits; Z88.7 Allergy status to serum and vaccine; W01.198A Fall on same level from slipping, tripping and stumbling with subsequent striking against other object, initial encounter; Y93.89 Activity, other specified; Y92.89 Other specified places as the place of occurrence of the external cause; Y99.8 Other external cause status
CPT/HCPCS: 70450; 72125; 99284-25